=== PATIENT | male | born 1995 | race Caucasian/White ===

== ENCOUNTER 2021-07-31 23:08 | Inpatient (IN) | payer OTHER ==
--- NOTE | 2021-07-31 23:51 | ED ---
Psych HPI - General Chief Complaint: Psychiatric Symptoms Stated Complaint: Mental Health Time Seen by Provider: 07/31/21 23:41 Source: patient, police, RN notes reviewed Mode of arrival: ambulatory - History of Present Illness Initial Comments: This is a pleasant 26-year-old male who presents to emergency department complaining of suicidal thoughts. Patient states for quite some time he has been having suicidal thoughts. Patient states that he inadvertently locked his keys in his car tonight after trying to clean it off. Patient states she shares a car with his brother. Patient became upset after this and has started having increased suicidal thoughts. Patient states he sometimes contemplates jumping off an overpass. He denies any homicidal ideation. Polydrug abuse. No other health problems. Patient has no thoughts of homicidality. Occasional cigarette smoker. Patient does have a job and states he is unable to make it to his job regularly. Patient states that he has brother have a fairly good relationship. He states that his brother is really the only family has left after his parents have passed on. MD Complaint: suicidal ideation - Related Data Previous Rx's Medication Instructions Recorded Doxycycline [Vibramycin] 100 mg PO Q12HR 10 Days capsule 04/23/17 Allergies Allergy/AdvReac Type Severity Reaction Status Date / Time No Known Allergies Allergy Verified 07/31/21 23:15 Review of Systems ROS Statement: Those systems with pertinent positive or pertinent negative responses have been documented in the HPI. ROS Other: All systems not noted in ROS Statement are negative. Past Medical History Past Medical History: No Reported History History of Any Multi-Drug Resistant Organisms: None Reported Past Surgical History: No Surgical Hx Reported Past Psychological History: No Psychological Hx Reported Smoking Status: Never smoker Past Alcohol Use History: None Reported Past Drug Use History: None Reported General Exam - General Exam Comments Initial Comments: Patient does not appear to be ill or toxic. Vital signs reviewed Limitations: no limitations General appearance: alert, in no apparent distress Head exam: Present: atraumatic, normocephalic, normal inspection Eye exam: Present: normal appearance, PERRL, EOMI. Absent: scleral icterus, conjunctival injection, periorbital swelling ENT exam: Present: normal exam, mucous membranes moist Neck exam: Present: normal inspection. Absent: tenderness, meningismus, lymphadenopathy Respiratory exam: Present: normal lung sounds bilaterally. Absent: respiratory distress, wheezes, rales, rhonchi, stridor Cardiovascular Exam: Present: regular rate, normal rhythm, normal heart sounds. Absent: systolic murmur, diastolic murmur, rubs, gallop, clicks GI/Abdominal exam: Present: soft, normal bowel sounds. Absent: distended, tenderness, guarding, rebound, rigid Extremities exam: Present: normal inspection, full ROM, normal capillary refill. Absent: tenderness, pedal edema, joint swelling, calf tenderness Back exam: Present: normal inspection Neurological exam: Present: alert, oriented X3, CN II-XII intact Psychiatric exam: Present: normal affect, depressed, anxious Skin exam: Present: warm, dry, intact, normal color. Absent: rash Course Vital Signs 07/31/21 08/01/21 23:15 02:22 Temperature 98 F Pulse Rate 111 H 98 Respiratory 20 16 Rate Blood Pressure 130/70 128/78 O2 Sat by Pulse 98 98 Oximetry Medical Decision Making - Medical Decision Making Patient with suicidal thoughts and ideations. Cleared medically for EPS evaluation The case was discussed in detail with ED attending physician. Presentation, findings, treatment plan discussed in detail. Patient was also seen and assessed by the ED attending physician. Patient will be admitted for psychiatric evaluation. - Lab Data Lab Results 07/31/21 Range/Units 23:44 Urine Opiates Screen Not Detected (NotDetected) Ur Oxycodone Screen Not Detected (NotDetected) Urine Methadone Screen Not Detected (NotDetected) Ur Propoxyphene Screen Not Detected (NotDetected) Ur Barbiturates Screen Not Detected (NotDetected) U Tricyclic Antidepress Not Detected (NotDetected) Ur Phencyclidine Scrn Not Detected (NotDetected) Ur Amphetamines Screen Not Detected (NotDetected) U Methamphetamines Scrn Not Detected (NotDetected) U Benzodiazepines Scrn Not Detected (NotDetected) Urine Cocaine Screen Not Detected (NotDetected) U Marijuana (THC) Screen Not Detected (NotDetected) Disposition Clinical Impression: Depression, Suicidal ideation Disposition: ADMITTED IP TO THIS [facility] Decision to Admit Reason: Admit from EC Decision Time: 01:02
[2021-08-01 00:26] LABS: Amphetamine Screen,Urine Not Detected (NotDetected); Barbiturate Screen,Urine Not Detected (NotDetected); Benzodiazepines Screen,Urine Not Detected (NotDetected); Cocaine Screen,Urine Not Detected (NotDetected); Methadone Screen, Urine Not Detected (NotDetected); Opiate Screen,Urine Not Detected (NotDetected); Oxycodone Screen, Urine Not Detected (NotDetected); Phencyclidine Screen,Urine Not Detected (NotDetected); Tricyclic Antidepressant,Urine Not Detected (NotDetected); Urn Cannabinoid Scrn Not Detected (NotDetected)
[2021-08-01] MEDS ORDERED: MAGNESIUM HYDROXIDE 2,400 MG/10 ML CUP PO PRN (01:17)
[2021-08-01] MEDS ORDERED: MAG HYDROX/AL HYDROX/SIMETH 30 ML CUP PO PRN (01:17)
[2021-08-01] MEDS ORDERED: ACETAMINOPHEN TAB 325 MG TAB PO PRN (01:17)
[2021-08-01] MEDS ORDERED: HALOPERIDOL LACTATE 5 MG/ML 1 ML VIAL IM PRN (01:17)
[2021-08-01] MEDS ORDERED: haloperidoL 5 MG TAB PO PRN (01:21)
[2021-08-01] MEDS ORDERED: LORazepam 2 MG/ML INJ IM PRN (01:21)
[2021-08-01] MEDS ORDERED: LORazepam 1 MG TAB PO PRN (01:25)
[2021-08-01] MEDS ORDERED: NICOTINE 14MG/24HR PATCH TRANSDERM SCH (09:00)
--- NOTE | 2021-08-01 13:04 | P.HP ---
Psychiatric H&P - . H&P Date: 08/01/21 History & Physical: Allergies Allergy/AdvReac Type Severity Reaction Status Date / Time No Known Allergies Allergy Verified 07/31/21 23:15 Vital Signs Temp 98.3 F 08/01/21 09:42 Pulse 110 H 08/01/21 09:42 Resp 16 08/01/21 09:42 BP 133/71 08/01/21 09:42 Pulse Ox 98 08/01/21 09:42 Intake & Output 07/31/21 08/01/21 08/01/21 18:59 06:59 18:59 Weight 97.8 kg Laboratory Last Values Urine Opiates Screen Not Detected (NotDetected) 07/31/21 23:44 Ur Oxycodone Screen Not Detected (NotDetected) 07/31/21 23:44 Urine Methadone Screen Not Detected (NotDetected) 07/31/21 23:44 Ur Propoxyphene Screen Not Detected (NotDetected) 07/31/21 23:44 Ur Barbiturates Screen Not Detected (NotDetected) 07/31/21 23:44 U Tricyclic Antidepress Not Detected (NotDetected) 07/31/21 23:44 Ur Phencyclidine Scrn Not Detected (NotDetected) 07/31/21 23:44 Ur Amphetamines Screen Not Detected (NotDetected) 07/31/21 23:44 U Methamphetamines Scrn Not Detected (NotDetected) 07/31/21 23:44 U Benzodiazepines Scrn Not Detected (NotDetected) 07/31/21 23:44 Urine Cocaine Screen Not Detected (NotDetected) 07/31/21 23:44 U Marijuana (THC) Screen Not Detected (NotDetected) 07/31/21 23:44 Coronavirus (PCR) Not Detected (Not Detectd) 08/01/21 01:07 08/01/21 12:59 IDENTIFYING DATA: Patient is a 26-year-old male who currently lives with his brother in a house has no kids and is unmarried. HPI: Patient presented to the hospital yesterday and was petition by the police. According to petition patient claimed that he was having suicidal thoughts and wanted to jump off of the overpass and into the water. Patient was admitted involuntarily however ended up signing adult voluntary form in agreement to treatment on the unit. He was fairly calm and cooperative during interview. He answered questions appropriately. He appeared to be fairly constricted and had poor eye contact during conversation. He states that he's been feeling depressed lately for the past year or so. He complains that he does have high levels of anxiety throughout the day. He claims that yesterday he was shoveling snow during the snowstorm and claims that he was cleaning his brother's car but accidentally left the keys inside the car. He states that he didn't want to t ell his brother and "decided to kill myself". He states that he had been thinking about suicide on and off however this had triggered it. He claims that he started walking towards the overpass and then called the 911 and the police came to take him to the hospital. He states that he feels that he is "stuck in her routine" and feels that it is hard for him to break it. 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 He states that he has been feeling suicidal for the past 1-2 months every other day. He claims that even if he is in a good mood he still may feel suicidal. He states that he has poor sleep and fair appetite. He states that his parents in 2012 which was very hard for him. Patient denies any current suicidal or homicidal ideations intent or plan. At this time patient denies any auditory or visual hallucinations. Patient denies any flight of ideas racing thoughts and increased in goal directed behavior. Patient admits to using now recreational drugs or cigarettes. UDS is negative. PAST PSYCHIATRIC HISTORY: Patient states that he has no previous psychiatric history. Patient denies being on any psychiatric medications. Patient denies any previous psychiatric hospitalizations. Patient denies any psychiatric outpatient follow-up. Claims he used to see a counselor in 2013 after his parents however stopped going. Patient denies any history of suicide attempts in the past. PMH:denies ALLERGIES: as per EMR CHEMICAL DEPENDENCY HISTORY: as per HPI FAMILY PSYCHIATRIC/SUBSTANCE USE HISTORY: He states that both of his parents were depressed SOCIAL HISTORY: Patient was born and raised in part here in [place]. 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 He currently lives with his brother in a house. He states that he has no kids and is unmarried. He completed up to ninth grade in school. He has no legal history. MENTAL STATUS EXAM: General Appearance: Patient appears to be wearing glasses, longer hair, stated age is alert, directable, and attempts to cooperate. Patient appears to have poor hygiene and grooming. Behavior: Patient is seated without any agitated behavior. poor eye contact. Speech: Patient's speech is fluent and nonpressured. Soft tone Mood/Affect: Patient reports their mood is depressed and anxious, affect is congruent and constricted. Suicidality/Homicidality: Patient denies having any homicidal ideation intent or plan. Denies any suicidal ideations intent or plan Perceptions: Patient denies any visual hallucinations and denies any auditory hallucinations Though content/process: There is no evidence of any delusional thought content and thought process is linear and goal-directed. Memory and concentration: AOX3, grossly intact for the purposes of this session. Can spell "WORLD" backwards Judgment and insight: poor STRENGTHS/WEAKNESSES: strength is that patient is resilient. Weakness is that patient has poor judgment and is impulsive INTELLECT: average IMPRESSIONS: Major depressive disorder, recurrent, severe without psychotic features Generalized anxiety disorder PLAN: -Patient is admitted under voluntary status to [facility]HU for stabilization of psychiatric symptoms and safety. Patient has signed adult voluntary form and medication consent and is placed in patient's chart. -Medications : Will start patient on Zoloft 25 mg daily for mood/anxiety, trazodone 25 mg daily at bedtime for insomnia/mood. -Ativan and Haldol PRN for agitation/aggression -Patient was informed of the risks, benefits and side effects of the medication and patient verbally consented to taking the medications. Patient signed med consent form and was placed in chart. -Internal Medicine consult to perform medical evaluation and physical. -NRT - not needed as patient does not smoke -SW on board for discharge planning. Encourage patient to participate in groups to work on coping skills.
[2021-08-01] MEDS: SERTRALINE 25 MG TAB PO SCH (13:10)
[2021-08-01] MEDS: traZODone HCL 50 MG TAB PO SCH (22:28)
--- NOTE | 2021-08-01 23:26 | P.CONS ---
History of Present Illness - Reason for Consult Consult date: 08/01/21 - History of Present Illness The patient is a 26-year-old male with known PMH who presented to the emergency room with complaints of depression and suicidal ideation. The patient was admitted to the mental health unit where he was seen and evaluated. The patient reports that he has been struggling with his social life which led him to contemplate jumping from an overpass. He however called EMS and was subsequently brought into the hospital. He reports no chronic medical conditions and does not take any medications. He denied tobacco, marijuana, or illicit substance use. He further denied any active complaints. Denied shortness of breath, fever, chills, cough, nausea, vomiting, abdominal pain, diarrhea. Review of systems: Pertinent positives and negatives as discussed in HPI, a complete review of systems was performed and all other systems are negative. Physical examination: General: non toxic, no distress, appears at stated age, overweight Derm: no unusual rashes/lesions no unusual ecchymoses, warm, dry Head: atraumatic, normocephalic, symmetric Eyes: EOMI, no lid lag, anicteric sclera, pupils equal round reactive to light ENT: Nose and ears atraumatic, no thrush, no pharyngeal erythema Neck: No thyromegaly, no cervical lymphadenopathy, trachea midline, supple Mouth: no lip lesion, mucus membranes moist Cardiovascular: S1S2 reg, no murmur, positive posterior tibial pulse bilateral, no edema, capillary refill less than 2 seconds Lungs: CTA bilateral, no rhonchi, no rales , no accessory muscle use Abdominal: soft, nontender to palpation, no guarding, no appreciable organomegaly, normal bowel sounds Ext: no gross muscle atrophy, muscle strength 5 out of 5 in all 4 extremities grossly, no contractures, Neuro: CN II-XI grossly intact, light touch intact all 4 extremities, finger to nose within normal limits, Psych: Alert, oriented, appropriate affect Assessment/plan Depression and suicidal ideation -As per psychiatry Thank you for allowing us to participate in the care of this patient. We will follow peripherally. Do not hesitate to contact us with questions. Someone can be reached from the [facility] hospitalist group at all hours of the day at [phone]. Past Medical History Past Medical History: No Reported History History of Any Multi-Drug Resistant Organisms: None Reported Past Surgical History: No Surgical Hx Reported Past Psychological History: No Psychological Hx Reported Smoking Status: Never smoker Past Alcohol Use History: None Reported Past Drug Use History: None Reported Medications and Allergies Home Medications Medication Instructions Recorded Confirmed Type Doxycycline [Vibramycin] 100 mg PO Q12HR 10 Days capsule 04/23/17 Rx Allergies Allergy/AdvReac Type Severity Reaction Status Date / Time No Known Allergies Allergy Verified 07/31/21 23:15 Physical Exam Vitals: Vital Signs Temp Pulse Pulse Pulse Resp BP BP 08/01/21 09:42 98.3 F 110 H 16 133/71 08/01/21 08:00 98.3 F 08/01/21 02:51 98.2 F 87 18 140/72 08/01/21 02:22 98 16 128/78 Pulse Ox 08/01/21 09:42 98 08/01/21 08:00 08/01/21 02:51 97 08/01/21 02:22 98
[2021-08-02] MEDS: SERTRALINE 25 MG TAB PO SCH (08:04)
[2021-08-02 10:24] LABS: Basophils % (A) 1 %; Eosinophils # (A) 0.1 k/uL (0-0.7); Eosinophils % (A) 1 %; HCT 46.9 % (39.0-53.0); HGB 16.2 gm/dL (13.0-17.5); Lymphocytes # (A) 1.5 k/uL (1.0-4.8); Lymphocytes % (A) 22 %; MCH 31.9 pg (25.0-35.0); MCHC 34.5 g/dL (31.0-37.0); MCV 92.4 fL (80.0-100.0); Mean Platelet Volume 7.9; Monocytes # (A) 0.4 k/uL (0-1.0); Monocytes % (A) 6 %; Neutrophils # (A) 4.5 k/uL (1.3-7.7); Neutrophils % (A) 68 %; Platelet Count 285 k/uL (150-450); RBC 5.08 m/uL (4.30-5.90); RDW 13.6 % (11.5-15.5); WBC 6.7 k/uL (3.8-10.6)
[2021-08-02 10:42] LABS: ALT 30 U/L (4-49); AST 27 U/L (17-59); African American GFR (CKD) >90 (>60 ml/min/1.73 sqM); Albumin 4.5 g/dL (3.5-5.0); Alkaline Phosphatase 120 U/L (38-126); Anion Gap 10 mmol/L; Blood Urea Nitrogen 18 mg/dL (9-20); Calcium 10.2 mg/dL (8.4-10.2); Carbon Dioxide 26 mmol/L (22-30); Chloride 104 mmol/L (98-107); Glucose 99 mg/dL (74-99); Non-African American GFR(CKD) >90 (>60 ml/min/1.73 sqM); Potassium 4.6 mmol/L (3.5-5.1); Sodium 140 mmol/L (137-145); Total Bilirubin 1.1 mg/dL (0.2-1.3)
--- NOTE | 2021-08-02 12:14 | P.PN ---
Progress Note - Text Progress Note Date: 08/02/21 Interval History: Patient was seen wandering the hallways and was directable and agreeable to catrachita jimenez with marine underwriter in the office. Patient appeared to have a mild improvement in his affect today. He claims that he is doing a bit better in terms of his mood and anxiety. He states that he does feel anxious while being on the unit. He claims that he has been trying to go to some groups however was fairly vague about what he was learning. He states that he was able to sleep throughout the night which was good for him. He asked more medication questions and about his treatment which were answered. He seemed to have an improvement in his insight and judgment. He claims that he spoke with his brother over the phone who may come and visit him over the weekend. He has an improving appetite. At this time patient denies any suicidal or homical ideations, intent or plan. Patient denies any auditory, visual hallucinations and denies any paranoia or delusions. Patient denies any side effects from the medications and has been compliant with meds. Mental Status Exam: General Appearance: Patient appears to be wearing glasses, longer hair, stated age is alert, directable, and attempts to cooperate. Patient appears to have improving hygiene and grooming. Behavior: Patient is seated without any agitated behavior. Improving eye contact. Speech: Patient's speech is fluent and nonpressured. Soft tone Mood/Affect: Patient reports their mood is depressed and anxious, improving, affect is congruent Suicidality/Homicidality: Patient denies having any homicidal ideation intent or plan. Denies any suicidal ideations intent or plan Perceptions: Patient denies any visual hallucinations and denies any auditory hallucinations Though content/process: There is no evidence of any delusional thought content and thought process is linear and goal-directed. Memory and concentration: AOX3, grossly intact for the purposes of this session. Can spell "WORLD" backwards Judgment and insight: poor, improving mildly. IMPRESSIONS: Major depressive disorder, recurrent, severe without psychotic features Generalized anxiety disorder Plan: -Patient continues to meet criteria for inpatient psychiatric admission for symptom stabilization and safety. Patient has signed adult voluntary form and medication consent and was placed in patient's chart. -Medications: Will increase Zoloft to 50 mg for anxiety/mood starting tomorrow. Continue with trazodone 25 mg daily at bedtime for mood/insomnia. These can be titrated up as needed/tolerated during the weekend. -When necessary Ativan and Haldol for agitation/aggression. -NRT - not needed as patient does not smoke -SW on board for discharge planning. Encouraged the patient to participate in milieu. Likely discharge Thursday if patient is improving over the weekend.
[2021-08-02 16:23] LABS: LDL Cholesterol,Calculated 103.4 mg/dL (0.0-131.0); VLDL Calculation 19.44 mg/dL (5.00-40.00)
[2021-08-02] MEDS: traZODone HCL 50 MG TAB PO SCH (21:53)
[2021-08-03] MEDS: SERTRALINE 50 MG TAB PO SCH (07:55)
--- NOTE | 2021-08-03 13:27 | P.PN ---
Progress Note - Text Progress Note Date: 08/03/21 CHIEF COMPLAINT The patient developed suicidal thinking related to a stress issue. He has had long-term problems with anxiety. INTERVAL HISTORY Patient is doing fair. He had a quiet day yesterday. He comes out on the unit. He has been attending groups. He says that groups have been helpful for him. He slept fairly well last night. Today he's been up. Overall he is doing about the same. He says he has a better outlook. It is noteworthy that in his history he has had long-term problems with anxiety. 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 He notes that some of his current stress related to the fact that he had been working 7 days a week. He says he likes his work and is comfortable in the work environment but acknowledged that he may have felt it was too much. He notes significant trauma issues in his growing up and that his mother from complications of muscular dystrophy when he was 17 and that 8 months after that his father from pneumonia. His sister who is 4 years older became the head of the family. He said it was a very stressful situation for him living with his sister who basically had him watch her children for the 4 years or more that he lived with her. He said that lately he has not had any contact with his sister for the last 4 years. Currently he lives with his brother. He says that is a stable living situation. His brothers one year older. He tolerates his psychotropic medications. MENTAL STATUS EXAM Patient sat with some restlessness. He gave fair eye contact. He didn't say a lot. His thoughts were clear and coherent. He had an anxious affect. His mood was reserved though not clearly depressed. He seems somewhat distressed. There was no indication of thought disorder. He was reporting that he was not having suicidal thoughts. Cognition was clear. ASSESSMENT I will continue the current diagnosis and treatment plan. We will continue to engage the patient in individual and group therapeutic activities. I will continue the patient's Zoloft 50 mg a day. There might be consideration for titrated up to 100 mg a day. It is noteworthy that the patient has had long-term issues with anxiety and is likely to require fairly assertive doses of antidepressants. He does not have any outpatient follow-up which will be something that needs to be addressed as part of discharge planning. We will focus on stabilization and discharge planning.
[2021-08-03] MEDS: traZODone HCL 50 MG TAB PO SCH (20:41)
[2021-08-04 08:04] VITALS: RESP 16
[2021-08-04] MEDS: SERTRALINE 50 MG TAB PO SCH (08:04)
--- NOTE | 2021-08-04 13:13 | P.PN ---
Progress Note - Text Progress Note Date: 08/04/21 CHIEF COMPLAINT The patient developed suicidal thinking related to a stress issue. He has had l edilia-term problems with anxiety. INTERVAL HISTORY The patient has been doing fairly well. He had a quiet day yesterday. He comes out of the unit. He has been attending groups. He has said that he slept fairly well last night. When I talked to him today he notes that his mood and outlook are better. He acknowledges that he tends to "think the worst" and any number of stressful situations. When I reviewed issues that led to him coming into the hospital he said that there were a number of different things that had been stressing him, though there was nothing specific that set things over the edge. I asked him about the idea that he did not seem to show much insight about what things have troubled him and lead him to the point of becoming suicidal simply because he liked keys in the car. He stated that today he is not feeling as anxious in part because he has been more open than is typical for him. He said the groups have been helpful for him to express more about himself and things that he deals with. He said that he has felt support from staff and the activities and that he sees benefit of getting out follow-up therapy when he is out of the hospital. He tolerates his psychotropic medications. MENTAL STATUS EXAM The patient sat with some restlessness. He gave good eye contact. He answered questions appropriately. His thoughts were clear, coherent and goal directed. His affect was somewhat anxious though he did seem a little more relaxed compared to how he presented yesterday. He had a quiet mood though didn't appear to be significantly depressed or distressed. There was no indication of thought disorder. He made no indication of thoughts of harm. He was oriented and alert. ASSESSMENT I will continue the current diagnosis and treatment plan. We will c ontinue to engage the patient in individual and group therapeutic activities. I will increase Zoloft to 100 mg a day. As noted he has had long-term issues with anxiety and poor self-esteem. He does not have any outpatient follow-up which will need to be addressed as part of discharge planning with the referral for individual psychotherapy. We will focus on stabilization and discharge planning.
[2021-08-04] MEDS ORDERED: SERTRALINE 50 MG TAB PO ONE (14:00)
[2021-08-04] MEDS: traZODone HCL 50 MG TAB PO SCH (21:41)
[2021-08-05] MEDS: SERTRALINE 100 MG TAB PO SCH (07:51)
--- NOTE | 2021-08-05 15:10 | P.PN ---
Progress Note - Text Progress Note Date: 08/05/21 CHIEF COMPLAINT The patient developed suicidal thinking related to a stress issue. He has had l edilia-term problems with anxiety. INTERVAL HISTORY The patient has been doing fairly well in general he had a quiet day yesterday he comes out on the unit he has been attending groups. He acknowledges that he has actually been able to express some thoughts about the things he has struggled with which is been a huge step forward for him. He slept well last night. I had a telephone contact with the person who owned the patient identifies as his primary support person, Linda Zamora She indicated that she first met the patient when he was 17 at his father's . She believes he has struggled with chronic grief since then. She notes that back then he was extremely shy to the point where he wouldn't even give people eye contact. He would be overwhelmed with anxiety if she were to ask him to go into a store to pickers material handlers an item. She confirmed that he has struggled significantly living with his older sister. She noted that anytime he gets under stress one of his reactions is to take a long walk, which is not always been productive for him including relating to his recent events that brought him into the hospital. She was shocked about the idea that he would react to such a degree just for a locking keys in his brother's car. She notes he does well at work and seems to have friends at work although noted that he was socializing with some coworkers after work. She said this went on for a while and then only he seemed to adjust push people away and got back to isolating himself area and she notes that she believes he is afraid of getting close to anyone. When I reviewed all of this information with the patient he was in agreement that it is a fairly accurate description of some of the things he has struggled with. He is willing to get involved in individual therapy. He recognizes that he may have impulsive behavior that could be destructive when it's driven by the high anxiety he can get into. He does believe that being on the unit has been helpful to him he to lerates his psychotropic medications. MENTAL STATUS EXAM The patient sat with some restlessness. He gave good eye contact. He answered questions appropriately. His thoughts were clear, coherent and goal directed. His affect was somewhat anxious though he continues to show more relaxed manner and demeanor. He smiled a little during the interview. He had a quiet mood though didn't appear to be significantly depressed or distressed. There was no indication of thought disorder. He made no indication of thoughts of harm. He was oriented and alert. ASSESSMENT I will continue the current diagnosis and treatment plan. We will continue to engage the patient in individual and group therapeutic activities. His Zoloft is increased to 100 mg a day as of this morning. As noted he has had long-term issues with anxiety and poor self-esteem. I reviewed via process relating to treatment with antidepressants including the possibility of titrated up to higher doses if indicated. We talked about the time course for a response and improvement related to depression. We talked about concerns for potential depression. I encouraged the patient if he does show a good response to Zoloft to anticipate continuing Zoloft for at least one year. He does not have any outpatient follow-up which will need to be addressed as part of discharge planning with the referral for individual psychotherapy. I anticipate discharge patient tomorrow. We will focus on stabilization and discharge planning.
[2021-08-05] MEDS: traZODone HCL 50 MG TAB PO SCH (21:04)
[2021-08-06 06:54] VITALS: BP 131/76; PULSE 84; TEMP 98.2
[2021-08-06] MEDS: SERTRALINE 100 MG TAB PO SCH (08:39)
--- NOTE | 2021-08-06 10:18 | P.DS ---
Providers Date of admission: 08/01/21 01:02 Expected date of discharge: 08/06/21 Attending physician: Jarrett Suero MD Consults: 08/01/21 01:17 Consult Physician Routine Consulting Provider: Rachel Peters Consult Reason/Comments: h and p Do you want consulting provider notified?: Already Contacted Primary care physician: Wander Ott Kut - Discharge Diagnosis(es) (1) Major depressive disorder, recurrent severe without psychotic features Current Visit: Yes Status: Acute Priority: High (2) Generalized anxiety disorder Current Visit: Yes Status: Acute Priority: Medium Hospital Course: Admission HPI: Admission note was completed by data analyst report writer "Patient is a 26-year-old male who currently lives with his brother in a house has no kids and is unmarried. Patient presented to the hospital yesterday and was petition by the police. According to petition patient claimed that he was having suicidal thoughts and wanted to jump off of the overpass and into the water. Patient was admitted involuntarily however ended up signing adult voluntary form in agreement to treatment on the unit. He was fairly calm and cooperative during interview. He answered questions appropriately. He appeared to be fairly constricted and had poor eye contact during conversation. He states that he's been feeling depressed lately for the past year or so. He complains that he does have high levels of anxiety throughout the day. He claims that yesterday he was shoveling snow during the snowstorm and claims that he was cleaning his brother's car but accidentally left the keys inside the car. He states that he didn't want to tell his brother and "decided to kill myself". He states that he had been thinking about suicide on and off however this had triggered it. He claims that he started walking towards the overpass and then called the 911 and the police came to take him to the hospital. He states that he feels that he is "stuck in her routine" and feels that it is hard for him to break it. 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 He states that he has been feeling suicidal for the past 1-2 months every other day. He claims that even if he is in a good mood he still may feel suicidal. He states that he has poor sleep and fair appetite. He states that his parents in 2012 which was very hard for him. Patient denies any current suicidal or homicidal ideations intent or plan. At this time patient denies any auditory or visual hallucinations. Patient denies any flight of ideas racing thoughts and increased in goal directed behavior. Patient admits to using now recreational drugs or cigarettes. UDS is negative." Hospital course: Upon admission to the unit patient was directable and agreeable to commence treatment and signed adult voluntary form. Patient got along well with other patients on the unit and followed unit protocol. Patient was compliant with the medications and denied any side effects throughout hospital course. Patient was started on Zoloft and titrated up to a dose of 100 mg daily for mood/anxiety. Patient was also started on trazodone 25 mg daily at bedtime for mood/insomnia. Patient spoke of his stressors and engaged in therapy both group and individual. Patient was also seen by medical team for history and physical exam. Throu ghout the course of the hospitalization patient gradually improved with regards to mood, anxiety, sleep and became more future oriented with improved insight and judgment. On the day of discharge patient denied any suicidal or homicidal ideations intent or plan denied any auditory or visual hallucinations. Patient endorsed wanting to live for his health and future. The patient denied any access to guns or weapons. Patient denied any paranoia and did not endorse any delusions. Patient does not have a significant history of substance abuse however was counseled on abstaining from all substances including alcohol and marijuana. Patient was also counseled on the medications and need for regular compliance and was encouraged to follow-up with their outpatient appointment for mental health and also for primary care. Prior to discharge a family meeting will be arranged by social media assistant to answer any questions and ensure safety upon discharge. Mental status exam: General Appearance: Patient appears to be stated age is alert, pleasant, and cooperative. Patient is in no acute distress and has improved hygiene and grooming Behavior: Patient is calmly seated without any agitated behavior. Speech: Patient's speech is fluent and nonpressured. Mood/Affect: Patient reports their mood is "good", affect is congruent and euthymic. Suicidality/Homicidality: Patient denies having any suicidal or homicidal ideation intent or plan. Perceptions: Patient denies any auditory or visual hallucinations. Though content/process: There is no evidence of any delusional thought content and thought process is linear and goal-directed. more future oriented Memory and concentration: AOX3, grossly intact for the purposes of this session. Can spell "WORLD" backwards correctly. Judgment and insight: improved with guarded prognosis Impression: Major depressive disorder, recurrent, severe without psychotic features Generalized anxiety disorder Plan: -Continue with discharge today as patient has improved and stabilized psychiatrically and is not currently an imminent threat to himself and/or others. -Continue medications: Zoloft 100 mg daily for mood/anxiety, trazodone 25 mg daily at bedtime for insomnia/mood -Patient was counseled on the need for medication compliance and appropriate follow-up at mental health and also primary care for medical issues. Patient verbalized understanding and agreed. -Social work to arrange for and conduct family meeting to ensure safety upon discharge and answer any questions/concerns. Social work also to arrange for patients follow up appointments for psychiatric care along with follow up with primary care provider. -Patient counseled on abstaining from recreational drugs and marijuana and alcohol. Was informed/educated on the adverse effects on their physical and mental health. Patient verbally agreed and understood. -Patient was instructed to return to the hospital or seek immediate medical care if their psychiatric or medical symptoms do worsen or reoccur. Allergies Allergy/AdvReac Type Severity Reaction Status Date / Time No Known Allergies Allergy Verified 07/31/21 23:15 Laboratory Results WBC 6.7 k/uL (3.8-10.6) 08/02/21 10:07 RBC 5.08 m/uL (4.30-5.90) 08/02/21 10:07 Hgb 16.2 gm/dL (13.0-17.5) 08/02/21 10:07 Hct 46.9 % (39.0-53.0) 08/02/21 10:07 MCV 92.4 fL (80.0-100.0) 08/02/21 10:07 MCH 31.9 pg (25.0-35.0) 08/02/21 10:07 MCHC 34.5 g/dL (31.0-37.0) 08/02/21 10:07 RDW 13.6 % (11.5-15.5) 08/02/21 10:07 Plt Count 285 k/uL (150-450) 08/02/21 10:07 MPV 7.9 08/02/21 10:07 Neutrophils % 68 % 08/02/21 10:07 Lymphocytes % 22 % 08/02/21 10:07 Monocytes % 6 % 08/02/21 10:07 Eosinophils % 1 % 08/02/21 10:07 Basophils % 1 % 08/02/21 10:07 Neutrophils # 4.5 k/uL (1.3-7.7) 08/02/21 10:07 Lymphocytes # 1.5 k/uL (1.0-4.8) 08/02/21 10:07 Monocytes # 0.4 k/uL (0-1.0) 08/02/21 10:07 Eosinophils # 0.1 k/uL (0-0.7) 08/02/21 10:07 Basophils # 0.0 k/uL (0-0.2) 08/02/21 10:07 Sodium 140 mmol/L (137-145) 08/02/21 10:07 Potassium 4.6 mmol/L (3.5-5.1) 08/02/21 10:07 Chloride 104 mmol/L (98-107) 08/02/21 10:07 Carbon Dioxide 26 mmol/L (22-30) 08/02/21 10:07 Anion Gap 10 mmol/L 08/02/21 10:07 BUN 18 mg/dL (9-20) 08/02/21 10:07 Creatinine 0.87 mg/dL (0.66-1.25) 08/02/21 10:07 Est GFR (CKD-EPI)AfAm >90 (>60 ml/min/1.73 sqM) 08/02/21 10:07 Est GFR (CKD-EPI)NonAf >90 (>60 ml/min/1.73 sqM) 08/02/21 10:07 Glucose 99 mg/dL (74-99) 08/02/21 10:[address] Glu mg/dL 113 08/02/21 10:07 Hemoglobin A1c 5.6 % (0.0-6.0) 08/02/21 10:07 Calcium 10.2 mg/dL (8.4-10.2) 08/02/21 10:07 Total Bilirubin 1.1 mg/dL (0.2-1.3) 08/02/21 10:07 AST 27 U/L (17-59) 08/02/21 10:07 ALT 30 U/L (4-49) 08/02/21 10:07 Alkaline Phosphatase 120 U/L (38-126) 08/02/21 10:07 Total Protein 8.0 g/dL (6.3-8.2) 08/02/21 10:07 Albumin 4.5 g/dL (3.5-5.0) 08/02/21 10:07 Triglycerides 97.20 mg/dL (0.00-149.00) 08/02/21 10:07 Cholesterol 160.00 mg/dL (0.00-200.00) 08/02/21 10:07 LDL Cholesterol, Calc 103.4 mg/dL (0.0-131.0) 08/02/21 10:07 VLDL Cholesterol, Calc 19.44 mg/dL (5.00-40.00) 08/02/21 10:07 HDL Cholesterol 37.20 mg/dL (40.00-60.00) L 08/02/21 10:07 Cholesterol/HDL Ratio 4.30 Ratio 08/02/21 10:07 TSH 0.326 mIU/L (0.465-4.680) L 08/02/21 10:07 Free T4 1.240 ng/dL (0.800-1.800) 08/02/21 10:07 Urine Opiates Screen Not Detected (NotDetected) 07/31/21 23:44 Ur Oxycodone Screen Not Detected (NotDetected) 07/31/21 23:44 Urine Methadone Screen Not Detected (NotDetected) 07/31/21 23:44 Ur Propoxyphene Screen Not Detected (NotDetected) 07/31/21 23:44 Ur Barbiturates Screen Not Detected (NotDetected) 07/31/21 23:44 U Tricyclic Antidepress Not Detected (NotDetected) 07/31/21 23:44 Ur Phencyclidine Scrn Not Detected (NotDetected) 07/31/21 23:44 Ur Amphetamines Screen Not Detected (NotDetected) 07/31/21 23:44 U Methamphetamines Scrn Not Detected (NotDetected) 07/31/21 23:44 U Benzodiazepines Scrn Not Detected (NotDetected) 07/31/21 23:44 Urine Cocaine Screen Not Detected (NotDetected) 07/31/21 23:44 U Marijuana (THC) Screen Not Detected (NotDetected) 07/31/21 23:44 Coronavirus (PCR) Not Detected (Not Detectd) 08/01/21 01:07 Vital Signs Temp 98.2 F 08/06/21 06:51 Pulse 84 08/06/21 06:51 Resp 16 08/04/21 08:03 BP 131/76 08/06/21 06:51 Pulse Ox 98 08/04/21 08:03 Patient Condition at Discharge: Stable Plan - Discharge Summary Discharge Rx Participant: No New Discharge Prescriptions: New Sertraline [Zoloft] 100 mg PO DAILY 30 Days tab traZODone HCL [Desyrel] 25 mg PO HS 30 Days tab Discontinued Doxycycline [Vibramycin] 100 mg PO Q12HR 10 Days capsule Discharge Medication List Sertraline [Zoloft] 100 mg PO DAILY 30 Days tab 08/06/21 [Rx] traZODone HCL [Desyrel] 25 mg PO HS 30 Days tab 08/06/21 [Rx] Follow up Appointment(s)/Referral(s): [facility] [Outside] - 08/09/21 2:30 pm (Al[facility] Pearson) Wander Meyers MD [Primary Care Provider] - 1-2 days Patient Instructions/Handouts: Depression (DC) Activity/Diet/Wound Care/Special Instructions: Activity and diet as tolerated. Avoid the use of street drugs and alcohol. Take all medications as prescribed. When you are in need of refills on your medications please contact your medical provider and/or outpatient psychiatrist to have this done. Please go to scheduled outpatient appointment for aftercare treatment. If symptoms return or become worse, call the crisis line at and/or go to the nearest emergency room for evaluation Discharge Disposition: HOME SELF-CARE
== END 2021-08-06 12:40 | disposition home or self-care (01) | DRG 885 ==
LOC: EC 23:08 → 3MHU 08-01 01:02
PROVIDERS: ADMIT Psychiatry & Neurology Psychiatry; ATTEND Psychiatry & Neurology Psychiatry
DX: F33.2 Major depressive disorder, recurrent severe without psychotic features (principal); R45.851 Suicidal ideations; Z20.822 Contact with and (suspected) exposure to COVID-19; F41.1 Generalized anxiety disorder; G47.00 Insomnia, unspecified; F17.210 Nicotine dependence, cigarettes, uncomplicated; Z71.41 Alcohol abuse counseling and surveillance of alcoholic; Z71.51 Drug abuse counseling and surveillance of drug abuser
CPT/HCPCS: 80053; 80061; 80306; 82075; 83036; 84439; 84443; 85025; 87635; 99285

== ENCOUNTER 2022-07-09 11:34 | Emergency (ER) | payer OTHER ==
[2022-07-09] MEDS ORDERED: SODIUM CHLORIDE 0.9% 1,000 ML IV ONE (13:53)
[2022-07-09] MEDS ORDERED: KETOROLAC 15 MG/ML 1 ML VIAL IVP STA (13:53)
--- NOTE | 2022-07-09 13:54 | ED ---
Abdominal Pain HPI - General Chief Complaint: Abdominal Pain Stated Complaint: abd pain Time Seen by Provider: 07/09/22 13:17 Source: patient Mode of arrival: ambulatory - History of Present Illness Initial Comments: 27-year-old male presents emergency Department reporting abdominal pain. States it's been going on for the past couple of weeks. He has pain in the left upper and right upper quadrants. He saw his primary care physician who ordered laboratory studies. States is a placed him on omeprazole. He has only been able to take one dose of the medications this morning before coming into the emergency department. He states that the pain is worse with eating. Denies concern for gallbladder issues as he states that most of his family members have had her gallbladder taken out. He denies fevers. No vomiting but has nausea. Denies diarrhea, constipation, black or bloody stools. No changes in his urination to include dysuria, hematuria or difficulty voiding. Denies any family history of inflammatory bowel disease. No previous abdominal surgeries. He does not drink alcohol. No NSAID use. No other alleviating, precipitating or modifying factors - Related Data Home Medications Medication Instructions Recorded Confirmed Omeprazole [PriLOSEC] 20 mg PO DAILY 07/09/22 07/09/22 Previous Rx's Medication Instructions Recorded Famotidine [Pepcid] 20 mg PO BID #56 tablet 07/09/22 Allergies Allergy/AdvReac Type Severity Reaction Status Date / Time No Known Allergies Allergy Verified 07/09/22 14:27 Review of Systems ROS Statement: Those systems with pertinent positive or pertinent negative responses have been documented in the HPI. ROS Other: All systems not noted in ROS Statement are negative. Past Medical History Past Medical History: No Reported History History of Any Multi-Drug Resistant Organisms: None Reported Past Surgical History: No Surgical Hx Reported Past Psychological History: No Psychological Hx Reported Smoking Status: Never smoker Past Alcohol Use History: None Reported Past Drug Use History: None Reported General Exam General appearance: alert, in no apparent distress Head exam: Present: atraumatic, normocephalic, normal inspection Eye exam: Present: normal appearance, PERRL, EOMI. Absent: scleral icterus, conjunctival injection, periorbital swelling ENT exam: Present: normal exam, mucous membranes moist Neck exam: Present: normal inspection, tenderness (epigastric). Absent: meningismus, lymphadenopathy Respiratory exam: Present: normal lung sounds bilaterally. Absent: respiratory distress, wheezes, rales, rhonchi, stridor Cardiovascular Exam: Present: regular rate, normal rhythm, normal heart sounds. Absent: systolic murmur, diastolic murmur, rubs, gallop, clicks GI/Abdominal exam: Present: soft, normal bowel sounds. Absent: distended, tenderness, guarding, rebound, rigid Extremities exam: Present: normal inspection, full ROM, normal capillary refill. Absent: tenderness, pedal edema, joint swelling, calf tenderness Back exam: Present: normal inspection Neurological exam: Present: alert, oriented X3, CN II-XII intact Psychiatric exam: Present: normal affect, normal mood Skin exam: Present: warm, dry, intact, normal color. Absent: rash Course Vital Signs 07/09/22 07/09/22 11:50 17:04 Temperature 98.0 F 98 F Pulse Rate 114 H 72 Respiratory 16 18 Rate Blood Pressure 137/75 122/71 O2 Sat by Pulse 98 98 Oximetry Medical Decision Making - Medical Decision Making Was pt. sent in by a medical professional or institution? no Did you speak to anyone other than the patient for history? no Did you review nursing and triage notes? yes and I agree Were old charts reviewed? none Differential Diagnosis? MDM Differential Abdominal Pain Men: Appendicitis, cholecystitis, diverticulosis, ischemic bowel, pancreatitis, hepatitis, UTI, gastroenteritis, AAA, incarcerated hernia, bowel obstruction, constipation, inflammatory bowel, hepatitis, peptic ulcer disease, splenic infarction, perforated viscus, testicular torsion... This is not meant to be an all-inclusive list EKG interpreted by me (3pts min.)? yes X-rays interpreted by me (1pt min.)? no CT interpreted by me (1pt min.)? yes U/S interpreted by me (1pt. min.)? no What testing was considered but not performed? (CT, X-rays, U/S, labs)? Why? none What meds were considered but not given? Why? none Did you discuss the management of the patient with other professionals? no Did you reconcile home meds? no Was smoking cessation discussed for >3mins.? no Was critical care preformed (if so, how long)? no Were there social determinants of health that impacted care today? How? (Homelessness, low income, unemployed, alcoholism, drug addiction, transportat ion, low edu. Level, literacy, decrease access to med. care, detention, rehab)? no Was there de-escalation of care discussed even if they declined? (Discuss DNR or withdrawal of care, Hospice)? no What co-morbidities impacted this encounter? (DM, HTN, Smoking, COPD, CAD, Cancer, CVA, Hep., AIDS, mental health diagnosis, sleep apnea, morbid obesity)? none Was patient admitted / discharged? Upon arrival patient was placed into room 9. A thorough history and physical exam was performed. IV access is established. Patient is given Zofran 4 mg for nausea and 15 mg of Toradol. 1 L of fluid administered. Laboratory studies are conducted and reviewed. Laboratory studies within normal limits. 2+ ketones in the urine. CT of the abdomen and pelvis is pursued. Does not demonstrate any acute findings to explain the patient's symptoms. This is discussed with the patient. Recommend that the patient had an EGD, HIDA scan. I will place him on Pepcid. Patient is to follow-up with his primary care doctor to have this testing obtained. Return to the emergency room for any new or worsening symptoms. Patient agreeable to this plan and he was discharged home in stable condition Undiagnosed new problem with uncertain prognosis? yes Drug Therapy requiring intensive monitoring for toxicity (Heparin, Nitro, Insu belle, Cardizem)? no Were any procedures done? no Diagnosis/symptom? acute abd pain Acute, or Chronic, or Acute on Chronic? acute Uncomplicated (without systemic symptoms) or Complicated (systemic symptoms)? complicated Side effects of treatment? no Exacerbation, Progression, or Severe Exacerbation] progression Poses a threat to life or bodily function? no - Lab Data Result diagrams: 07/09/22 14:19 07/09/22 14:19 Lab Results 07/09/22 07/09/22 07/09/22 Range/Units 14:19 14:19 16:11 WBC 7.3 (3.8-10.6) k/uL RBC 4.80 (4.30-5.90) m/uL Hgb 14.7 (13.0-17.5) gm/dL Hct 41.6 (39.0-53.0) % MCV 86.8 (80.0-100.0) fL MCH 30.7 (25.0-35.0) pg MCHC 35.3 (31.0-37.0) g/dL RDW 13.4 (11.5-15.5) % Plt Count 213 (150-450) k/uL MPV 9.0 Neutrophils % 67 % Lymphocytes % 24 % Monocytes % 5 % Eosinophils % 0 % Basophils % 1 % Neutrophils # 4.9 (1.3-7.7) k/uL Lymphocytes # 1.7 (1.0-4.8) k/uL Monocytes # 0.4 (0-1.0) k/uL Eosinophils # 0.0 (0-0.7) k/uL Basophils # 0.0 (0-0.2) k/uL Sodium 139 (137-145) mmol/L Potassium 3.7 (3.5-5.1) mmol/L Chloride 106 (98-107) mmol/L Carbon Dioxide 24 (22-30) mmol/L Anion Gap 9 mmol/L BUN 11 (9-20) mg/dL Creatinine 0.71 (0.66-1.25) mg/dL Est GFR (CKD-EPI)AfAm >90 (>60 ml/min/1.73 sqM) Est GFR (CKD-EPI)NonAf >90 (>60 ml/min/1.73 sqM) Glucose 84 (74-99) mg/dL Calcium 9.1 (8.4-10.2) mg/dL Total Bilirubin 0.8 (0.2-1.3) mg/dL AST 24 (17-59) U/L ALT 20 (4-49) U/L Alkaline Phosphatase 74 (38-126) U/L Total Protein 6.7 (6.3-8.2) g/dL Albumin 4.1 (3.5-5.0) g/dL Lipase 37 (23-300) U/L Urine Color Yellow Urine Appearance Clear (Clear) Urine pH 5.5 (5.0-8.0) Ur Specific [place] >1.050 H (1.001-1.035) Urine Protein Negative (Negative) Urine Glucose (UA) Negative (Negative) Urine Ketones 2+ H (Negative) Urine Blood Negative (Negative) Urine Nitrite Negative (Negative) Urine Bilirubin Negative (Negative) Urine Urobilinogen <2.0 (<2.0) mg/dL Ur Leukocyte Esterase Negative (Negative) - EKG Data EKG Comments: EKG demonstrates a sinus rhythm with a rate of 76. [place] interval 188. QRS 99. QTC of 374. No acute ST segment elevations or depressions Disposition Clinical Impression: Abdominal pain Disposition: HOME SELF-CARE Condition: Stable Instructions (If sedation given, give patient instructions): Abdominal Pain (ED) Additional Instructions: I think you need an EGD and a HIDA scan. Please see your primary care doctor to have these tests ordered. Take the Pepcid in addition to your omeprazole and return for any new or worsening symptoms Prescriptions: Famotidine [Pepcid] 20 mg PO BID #56 tablet Is patient prescribed a controlled substance at d/c from ED?: No Referrals: Wander Meyers MD [Primary Care Provider] - 1-2 days Time of Disposition: 16:55
[2022-07-09] MEDS ORDERED: ONDANSETRON 4 MG/2 ML VIAL IVP STA (14:31)
[2022-07-09 14:38] LABS: Basophils % (A) 1 %; Eosinophils % (A) 0 %; HCT 41.6 % (39.0-53.0); HGB 14.7 gm/dL (13.0-17.5); Lymphocytes # (A) 1.7 k/uL (1.0-4.8); Lymphocytes % (A) 24 %; MCH 30.7 pg (25.0-35.0); MCHC 35.3 g/dL (31.0-37.0); MCV 86.8 fL (80.0-100.0); Monocytes # (A) 0.4 k/uL (0-1.0); Monocytes % (A) 5 %; Neutrophils # (A) 4.9 k/uL (1.3-7.7); Neutrophils % (A) 67 %; Platelet Count 213 k/uL (150-450); RDW 13.4 % (11.5-15.5); WBC 7.3 k/uL (3.8-10.6)
[2022-07-09 14:41] LABS: ALT 20 U/L (4-49); AST 24 U/L (17-59); African American GFR (CKD) >90 (>60 ml/min/1.73 sqM); Albumin 4.1 g/dL (3.5-5.0); Alkaline Phosphatase 74 U/L (38-126); Anion Gap 9 mmol/L; Blood Urea Nitrogen 11 mg/dL (9-20); Calcium 9.1 mg/dL (8.4-10.2); Carbon Dioxide 24 mmol/L (22-30); Chloride 106 mmol/L (98-107); Glucose 84 mg/dL (74-99); Lipase 37 U/L (23-300); Non-African American GFR(CKD) >90 (>60 ml/min/1.73 sqM); Potassium 3.7 mmol/L (3.5-5.1); Sodium 139 mmol/L (137-145); Total Bilirubin 0.8 mg/dL (0.2-1.3); Total Protein 6.7 g/dL (6.3-8.2)
--- NOTE | 2022-07-09 15:38 | CT ---
EXAMINATION TYPE: CT abdomen pelvis w con DATE OF EXAM: 07/09/2022 COMPARISON: None INDICATION: Abdominal pain and nausea DLP: 906.9 mGycm, Automated exposure control for dose reduction was used. CONTRAST: 100 mL of Isovue 300. Study performed without Oral Contrast TECHNIQUE: Axial images were obtained from above the diaphragm to the pubic rami in the axial plane a t 5 mm thick sections. Reconstructed images are reviewed on the computer in the coronal plane. FINDINGS: Limited CT sections are obtained the lung bases. The lung bases are clear. CT ABDOMEN: Liver: Normal Spleen: Normal Pancreas: Normal Adrenal glands: The adrenal glands are normal. Gallbladder: Normal Kidneys: No masses are evident. No hydronephrosis is present. No cysts are present. Delayed images were obtained through the kidneys, which remain unremarkable. Aorta: Vascular calcification is within the aorta. Inferior vena cava: Normal. CT PELVIS: Loops of bowel within the abdomen and pelvis are normal. There are loops of bowel which are incom pletely distended or lack oral contrast limiting their evaluation. Appendix: Appears to be the appendix adjacent to the terminal ileum is Normal as visualized. No suspi cious dilated tubular structure or inflammatory changes are evident. Urinary bladder: Normal. Genitourinary structures: Prostate is prominent. Osseous structures: No suspicious lytic or sclerotic lesions. IMPRESSIONS: 1. No suspicious acute changes to account for patient's pain and nausea
[2022-07-09 16:18] LABS: Appearance,Urine Clear (Clear); Bilirubin,Urine Negative (Negative); Blood,Urine Negative (Negative); Color,Urine Yellow; Glucose,Urine (UA) Negative (Negative); Ketones,Urine 2+ (Negative); Leukocyte Esterase,Urine Negative (Negative); Nitrite,Urine Negative (Negative); PH, Urine 5.5 (5.0-8.0); Protein,Urine Negative (Negative); Urobilinogen,Urine <2.0 mg/dL (<2.0)
[2022-07-09 16:20] LABS: Specific Gravity,Urine >1.050 (1.001-1.035)
[2022-07-09 17:05] VITALS: BP 122/71; PULSE 72; RESP 18; TEMP 98
== END 2022-07-09 17:05 | disposition home or self-care (01) ==
LOC: EC 11:34
DX: R10.12 Left upper quadrant pain (principal); R10.11 Right upper quadrant pain
CPT/HCPCS: 36415; 93005; 80053; 83690; 85025; 81003; 74177; 99285; 96374; 96375; J2405; J1885; Q9967

== ENCOUNTER 2022-09-15 06:19 | Day surgery (SDC) | payer OTHER ==
[2022-09-10 08:52] VITALS: BMI 21.7
[~2022-09-15 06:19] MED LIST: ACETAMINOPHEN TAB 500 MG TAB PO PRN; HEPARIN SODIUM,PORCINE/PF 5,000 UNIT/0.5 ML SYRINGE SQ PRN
[2022-09-15] MEDS ORDERED: ONDANSETRON 4 MG/2 ML VIAL ONE ×2 (07:06→07:41)
[2022-09-15] MEDS ORDERED: LACTATED RINGERS 1,000 ML IV ONE ×2 (07:10→08:57)
[2022-09-15] MEDS ORDERED: ONDANSETRON 4 MG/2 ML VIAL IVP ONE ×2 (07:32→09:16)
[2022-09-15] MEDS ORDERED: DEXAMETHASONE SOD PHOSPHATE 4 MG/ML 1 ML VIAL IVP ONE (07:33)
[2022-09-15] MEDS ORDERED: SCOPOLAMINE 1 MG/72 HR PATCH TRANSDERM ONE (07:33)
--- NOTE | 2022-09-15 07:39 | P.GSHP ---
History of Present Illness H&P Date: 09/15/22 Chief Complaint: Right upper quadrant pain This a 27-year-old male who's had complete right quadrant pain. His recent HIDA scan shows a diminished ejection fraction consistent with chronic cholecystitis/biliary dyskinesia. Patient presents today for laparoscopic cholecystectomy. Past Medical History Past Medical History: GERD/Reflux Additional Past Medical History / Comment(s): GALLBLADDER DISORDER History of Any Multi-Drug Resistant Organisms: None Reported Past Surgical History: No Surgical Hx Reported Past Anesthesia/Blood Transfusion Reactions: No Reported Reaction Smoking Status: Never smoker - Past Family History Mother Family Medical History: No Reported History Medications and Allergies Home Medications Medication Instructions Recorded Confirmed Type Famotidine [Pepcid] 20 mg PO BID #56 tablet 07/09/22 09/15/22 Rx Omeprazole [PriLOSEC] 20 mg PO DAILY 07/09/22 09/15/22 History Allergies Allergy/AdvReac Type Severity Reaction Status Date / Time No Known Allergies Allergy Verified 09/15/22 06:58 Surgical - Exam Vital Signs Temp Pulse Resp BP Pulse Ox 99 F 110 H 16 129/84 96 09/15/22 07:10 09/15/22 07:10 09/15/22 07:10 09/15/22 07:10 09/15/22 07:10 - General well developed, well nourished, no distress - Eyes PERRL - ENT normal pinna - Neck no masses - Respiratory normal expansion - Cardiovascular Rhythm: regular - Abdomen Abdomen: soft, non tender Assessment and Plan Assessment: Right quadrant pain, chronic cholecystitis, we'll perform laparoscopic cholecystectomy
[2022-09-15] MEDS ORDERED: ROCURONIUM 10 MG/ML (5 ML VIAL) IV ONE (07:41)
[2022-09-15] MEDS ORDERED: KETOROLAC 15 MG/ML 1 ML VIAL ONE (07:41)
[2022-09-15] MEDS ORDERED: DEXAMETHASONE SOD PHOS (MDV) 100 MG/10 ML VIAL ONE (07:41)
[2022-09-15] MEDS ORDERED: PROPOFOL 10 MG/ML 20 ML VIAL IV ONE (07:41)
[2022-09-15] MEDS ORDERED: MIDAZOLAM 2 MG/2 ML VIAL ONE (07:41)
[2022-09-15] MEDS ORDERED: SUCCINYLCHOLINE CHLORIDE 200 MG/10 ML VIAL IV ONE (07:41)
[2022-09-15] MEDS ORDERED: fentaNYL (PF) 50 MCG/ML 2 ML AMP ONE (07:41)
[2022-09-15] MEDS ORDERED: BUPIVACAIN-EPI 0.25%-1:200,000 30 ML VIAL SQ ONE (08:11)
--- NOTE | 2022-09-15 08:23 | P.OP ---
Date of Procedure: 09/15/22 Preoperative Diagnosis: Chronic cholecystitis Postoperative Diagnosis: Chronic cholecystitis Procedure(s) Performed: Laparoscopic cholecystectomy Anesthesia: AUGUSTO Surgeon: Isidro Sterling Estimated Blood Loss (ml): 5 Pathology: other (Gallbladder) Condition: stable Disposition: PACU Description of Procedure: The patient was placed on the operating table. The patient received a general endotracheal tube anesthesia. The patients abdomen was prepped and draped in the usual sterile fashion. Through an infraumbilical stab incision, the fascia of the anterior abdominal wall was grasped with a pair of Kochers and then the Veress needle was placed in the peritoneal cavity. Position of the Veress needle was confirmed with positive drop test. The abdomen was then insufflated. After adequate insufflation, the 10 mm trocar was placed in the peritoneal cavity. Following this the laparoscope was placed in the peritoneal cavity. The patient was placed in the head-up, right side up position and then a 5 mm trocar was placed in the right lateral and right subcostal position under direct visualization. A 8 mm trocar was placed in the epigastric position. The gallbladder was grasped in the fundus and infundibulum. Traction on the gallbladder was placed in the lateral and the cephalad positions. The triangle of Calot was visualized.. The cystic duct was bluntly dissected until the union of the cystic duct and common bile duct was seen. A critical view of safety was achieved. The cystic duct was then divided and sealed with the Harmonic scissors. A PDS Endoloop was then placed throughout the cystic duct stump. The cystic artery divided and sealed with the Harmonic scissors. The gallbladder was then removed from the liver bed using Harmonic scissors. The gallbladder was then extracted through the epigastric port site. Operative field was checked for any bleeding spots and Harmonic scissors was used to coagulate the liver bed. The abdomen was irrigated. The trocars were removed. The skin was closed using interrupted 3-0 Vicryl suture. Dermabond dressing were applied. The patient tolerated the procedure well.
[2022-09-15 08:36] VITALS: TEMP 98
[2022-09-15] MEDS ORDERED: METOCLOPRAMIDE 5 MG/ML 2 ML VIAL IVP PRN (09:16)
[2022-09-15] MEDS ORDERED: DEXAMETHASONE SOD PHOSPHATE 4 MG/ML 1 ML VIAL IV ONE (09:16)
[2022-09-15] MEDS ORDERED: FAMOTIDINE 20 MG/2 ML VIAL IV PRN (09:16)
[2022-09-15] MEDS ORDERED: HYDROmorphone 0.5 MG/0.5 ML SYRINGE IVP PRN (09:16)
[2022-09-15] MEDS ORDERED: LACTATED RINGERS 1,000 ML IV SCH (09:16)
[2022-09-15] MEDS ORDERED: LIDOCAINE 1% (10MG/ML) FOR IV START INTRADERMA PRN (09:16)
[2022-09-15 09:46] VITALS: BP 144/83; PULSE 82; RESP 16
== END 2022-09-15 10:30 | disposition home or self-care (01) ==
LOC: OR 06:19
PROVIDERS: ATTEND Surgery
DX: K81.1 Chronic cholecystitis (principal); K82.8 Other specified diseases of gallbladder; K21.9 Gastro-esophageal reflux disease without esophagitis; Z87.19 Personal history of other diseases of the digestive system; Z79.899 Other long term (current) drug therapy; Z83.3 Family history of diabetes mellitus
CPT/HCPCS: 88304; 47562; J2250; J0330; J1100 ×2; J0690; J2405; J3010; J1885; J2704; J1644

== ENCOUNTER 2023-11-10 07:14 | Inpatient (IN) | payer OTHER ==
[2023-11-10] MEDS: KETOROLAC 15 MG/ML 1 ML VIAL IVP STA (08:09)
[2023-11-10] MEDS: ONDANSETRON 4 MG/2 ML VIAL IVP STA (08:09)
[2023-11-10] MEDS: PANTOPRAZOLE 40 MG/10 ML VIAL IVP STA (08:09)
--- NOTE | 2023-11-10 08:09 | ED ---
General Adult HPI - General Chief complaint: Overdose Stated complaint: Intentional overdose Time Seen by Provider: 11/10/23 07:32 Source: patient, RN notes reviewed, old records reviewed Mode of arrival: ambulatory Limitations: no limitations - History of Present Illness Initial comments: Patient is a 28-year-old male who presents emergency department complaining of suicidal attempt via external overdose. Patient took a total of 10 tablets of 5 mg oxycodone as well as 14 tablets of 500 mg Tylenol at approximately 2340 on 11/09/2023 which was last night. I evaluate the patient at 730 on 11/10/2023. Patient states he does have a history of depression as well as prior suicide ideation and attempt. Denies any homicidal ideations, times complaints. Denies any hallucinations. Is currently complaining of some abdominal discomfort as we ll as nausea. Had a few episodes of emesis at home. Denies any cough or difficulty breathing or chest pain. No other acute complaints at this time. Presents for further evaluation. Presents with family friend who is willing to petition the patient. - Related Data Home Medications Medication Instructions Recorded Confirmed No Known Home Medications 11/10/23 11/10/23 Allergies Allergy/AdvReac Type Severity Reaction Status Date / Time No Known Allergies Allergy Verified 11/10/23 10:43 Review of Systems ROS Statement: Those systems with pertinent positive or pertinent negative responses have been documented in the HPI. Review of Systems: CONST: Denies fever EYES: Denies blurry vision ENT: Denies nasal congestion C/V: Denies Chest pain RESP: Denies shortness of breath GI: Endorses abdominal discomfort, nausea : Denies dysuria SKIN: Denies rash. MSK: Denies joint pain. NEURO: Denies headache ROS Other: All systems not noted in ROS Statement are negative. Past Medical History Past Medical History: GERD/Reflux Additional Past Medical History / Comment(s): GALLBLADDER DISORDER History of Any Multi-Drug Resistant Organisms: None Reported Past Surgical History: No Surgical Hx Reported Past Anesthesia/Blood Transfusion Reactions: No Reported Reaction Past Psychological History: No Psychological Hx Reported Smoking Status: Never smoker Past Alcohol Use History: None Reported Past Drug Use History: None Reported - Past Family History Mother Family Medical History: No Reported History General Exam - General Exam Comments Initial Comments: General: Appears in no acute distress. HEAD: Appears in mild discomfort EYES: PERRLA, EOMI, conjunctiva normal, no discharge. ENT: Hearing grossly intact, normal oropharynx. RESPIRATORY: Clear breath sounds bilaterally. No wheezes, rales, or rhonchi. C/V: Regular rate and rhythm. S1 and S2 auscultated, no edema, peripheral pulses 2+ and intact throughout ABD: Abd is soft, nontender, nondistended EXT: Normal range of motion, no obvious deformity SKIN: No rashes or lesions observed on exposed skin. NEURO: Alert and oriented x 4. Limitations: no limitations Course Vital Signs 11/10/23 11/10/23 07:17 10:16 Temperature 98.7 F Pulse Rate 73 74 Respiratory 20 18 Rate Blood Pressure 135/83 183/80 O2 Sat by Pulse 98 96 Oximetry Medical Decision Making - Medical Decision Making Was pt. sent in by a medical professional or institution (, PA, PATTERN FILER, urgent care, hospital, or group home...) When possible be specific @ -No Did you speak to anyone other than the patient for history (EMS, parent, family, police, friend...)? What history was obtained from this source @ -Spoke with family friend who is concerned regarding patient suicide attempt and is willing to petition the patient Did you review nursing and triage notes (agree or disagree)? Why? @ -I reviewed and agree with nursing and triage notes Were old charts reviewed (outside hosp., previous admission, EMS record, old EKG, old radiological studies, urgent care reports/EKG's, group home records)? Report findings @ -Confirmed with old charts that patient's medications were previously prescribed to him, the oxycodone IR is from a prior surgery. Differential Diagnosis (chest pain, altered mental status, abdominal pain women, abdominal pain men, vaginal bleeding, weakness, fever, dyspnea, syncope, headache, dizziness, GI bleed, back pain, seizure, CVA, palpatations, mental health, musculoskeletal)? @ -Intentional overdose, suicide attempt, Tylenol toxicity, gastritis, electrolyte abnormality, GUERDA. This list is not all inclusive. EKG interpreted by me (3pts min.). @ -As above X-rays interpreted by me (1pt min.). @ -None done CT interpreted by me (1pt min.). @ -None done U/S interpreted by me (1pt. min.). @ -None done What testing was considered but not performed or refused? (CT, X-rays, U/S, labs)? Why? @ -None What meds were considered but not given or refused? Why? @ -None Did you discuss the management of the patient with other professionals (professionals i.e. , PA, PATTERN FILER, lab, RT, psych nurse, social work manager, performance specialist, teacher, financial aids officer, bilingual patient support caseworker)? Give summary @ -Poison control contacted by nursing staff.Poison control recommends monitoring electrolytes, keeping mag above 2, potassium above 4 and calcium of 9.5. Recommends treatment with NAC despite the on toxic level of Tylenol at this time. This is due to the patient's elevated liver enzymes. Recommend admission for further monitoring. I spoke with Dr. Cabral of GI who agreed to the consult and requested repeat LFTs. I spoke with admitting team, Dr. Mason who accepted the admission. Was smoking cessation discussed for >3mins.? @ -No Was critical care preformed (if so, how long)? @ -yes, 32 min Were there social determinants of health that impacted care today? How? (Homelessness, low income, unemployed, alcoholism, drug addiction, tr ansportation, low edu. Level, literacy, decrease access to med. care, longterm, rehab)? @ -No Was there de-escalation of care discussed even if they declined (Discuss DNR or withdrawal of care, Hospice)? DNR status @ -No What co-morbidities impacted this encounter? (DM, HTN, Smoking, COPD, CAD, Cancer, CVA, ARF, Chemo, Hep., AIDS, mental health diagnosis, sleep apnea, morbid obesity)? @ -None Was patient admitted / discharged? Hospital course, mention meds given and route, prescriptions, significant lab abnormalities, going to OR and other pertinent info. @ -Based on patient's presentation and physical exam, patient had an intentional overdose with the intent of harming himself with suicide attempt. Patient took a total of 10 pills of oxycodone 5 mg and 14 pills of Tylenol 500. This is a total ingestion of 7 g of Tylenol. One-time toxic ingestion for the patient based on 150 mg/kg would be approximately 12 g of Tylenol. We will obtain an overdose workup and then speak with poison control. Patient be symptomatically treated with IV fluids, Zofran, Protonix. He will also be given Toradol for pain. Patient was in agreement this plan. Vital signs are currently within acceptable limits. No signs of respiratory distress at this time. EKG shows no signs of acute ischemia. Patient's laboratory studies remarkable for hypomagnesemia, hypokalemia, hypocalcemia. Patient has slightly elevated LFTs at 467 and 331. Tylenol level is 28.9 at the 8-hour marii. Remainder the workup unremarkable. UDS is still pending. I discussed results with the patient. He will be admitted to the hospital after discussion with poison control.Poison control recommends monitoring electrolytes , keeping mag above 2, potassium above 4 and calcium of 9.5. Recommends treatment with NAC despite the on toxic level of Tylenol at this time. This is due to the patient's elevated liver enzymes. Recommend admission for further monitoring. Electrolytes replenished. Psychiatry consulted for evaluation on inpatient basis. I spoke with Dr. Cabral of who agreed to the consult and requested repeat LFTs. I spoke with admitting team, Dr. Mason who accepted the admission. Undiagnosed new problem with uncertain prognosis? @ -No Drug Therapy requiring intensive monitoring for toxicity (Heparin, Nitro, Insulin, Cardizem)? @ -No Were any procedures done? @ -No Diagnosis/symptom? @ -Hypokalemia, hypocalcemia, transaminitis, intentional overdose with acetaminophen, suicide attempt Acute, or Chronic, or Acute on Chronic? @ -Acute Uncomplicated (without systemic symptoms) or Complicated (systemic symptoms)? @ -Complicated Side effects of treatment? @ -None Exacerbation, Progression, or Severe Exacerbation] @ -No Poses a threat to life or bodily function? @ -Yes - Lab Data Result diagrams: 11/10/23 07:32 11/10/23 07:32 Lab Results 11/10/23 11/10/23 11/10/23 Range/Units 07:32 07:32 07:32 WBC 8.0 (3.8-10.6) k/uL RBC 4.61 (4.30-5.90) m/uL Hgb 14.1 (13.0-17.5) gm/dL Hct 42.9 (39.0-53.0) % MCV 93.0 (80.0-100.0) fL MCH 30.6 (25.0-35.0) pg MCHC 32.9 (31.0-37.0) g/dL RDW 13.2 (11.5-15.5) % Plt Count 208 (150-450) k/uL MPV 8.4 Neutrophils % 78 % Lymphocytes % 13 % Monocytes % 7 % Eosinophils % 0 % Basophils % 0 % Neutrophils # 6.3 (1.3-7.7) k/uL Lymphocytes # 1.0 (1.0-4.8) k/uL Monocytes # 0.6 (0-1.0) k/uL Eosinophils # 0.0 (0-0.7) k/uL Basophils # 0.0 (0-0.2) k/uL PT (10.0-12.5) sec INR (<1.2) Sodium 140 (137-145) mmol/L Potassium 3.2 L (3.5-5.1) mmol/L Chloride 110 H (98-107) mmol/L Carbon Dioxide 25 (22-30) mmol/L Anion Gap 5 mmol/L BUN 13 (9-20) mg/dL Creatinine 0.66 (0.66-1.25) mg/dL Est GFR (CKD-EPI)AfAm >90 (>60 ml/min/1.73 sqM) Est GFR (CKD-EPI)NonAf >90 (>60 ml/min/1.73 sqM) Glucose 123 H (74-99) mg/dL Plasma Lactic Acid Juan (0.7-2.0) mmol/L Calcium 8.0 L (8.4-10.2) mg/dL Magnesium 1.7 (1.6-2.3) mg/dL Total Bilirubin 0.8 (0.2-1.3) mg/dL AST 467 H (17-59) U/L ALT 331 H (4-49) U/L Alkaline Phosphatase 90 (38-126) U/L Creatine Kinase 55 (55-170) U/L Total Protein 5.9 L (6.3-8.2) g/dL Albumin 3.4 L (3.5-5.0) g/dL Urine Color Urine Appearance (Clear) Urine pH (5.0-8.0) Ur Specific [place] (1.001-1.035) Urine Protein (Negative) Urine Glucose (UA) (Negative) Urine Ketones (Negative) Urine Blood (Negative) Urine Nitrite (Negative) Urine Bilirubin (Negative) Urine Urobilinogen (<2.0) mg/dL Ur Leukocyte Esterase (Negative) Urine WBC (0-5) /hpf Ur Squamous Epith Cells (0-4) /hpf Hyaline Casts (0-2) /lpf Urine Mucus (None) /hpf Salicylates <1.0 mg/dL Urine Opiates Screen (NotDetected) Ur Oxycodone Screen (NotDetected) Urine Methadone Screen (NotDetected) Acetaminophen 28.9 ug/mL Ur Barbiturates Screen (NotDetected) U Tricyclic Antidepress (NotDetected) Ur Phencyclidine Scrn (NotDetected) Ur Amphetamines Screen (NotDetected) U Methamphetamines Scrn (NotDetected) U Benzodiazepines Scrn (NotDetected) Urine Cocaine Screen (NotDetected) U Marijuana (THC) Screen (NotDetected) Serum Alcohol <10 mg/dL 11/10/23 11/10/23 11/10/23 Range/Units 08:00 10:15 10:15 WBC (3.8-10.6) k/uL RBC (4.30-5.90) m/uL Hgb (13.0-17.5) gm/dL Hct (39.0-53.0) % MCV (80.0-100.0) fL MCH (25.0-35.0) pg MCHC (31.0-37.0) g/dL RDW (11.5-15.5) % Plt Count (150-450) k/uL MPV Neutrophils % % Lymphocytes % % Monocytes % % Eosinophils % % Basophils % % Neutrophils # (1.3-7.7) k/uL Lymphocytes # (1.0-4.8) k/uL Monocytes # (0-1.0) k/uL Eosinophils # (0-0.7) k/uL Basophils # (0-0.2) k/uL PT 11.0 (10.0-12.5) sec INR 1.0 (<1.2) Sodium (137-145) mmol/L Potassium (3.5-5.1) mmol/L Chloride (98-107) mmol/L Carbon Dioxide (22-30) mmol/L Anion Gap mmol/L BUN (9-20) mg/dL Creatinine (0.66-1.25) mg/dL Est GFR (CKD-EPI)AfAm (>60 ml/min/1.73 sqM) Est GFR (CKD-EPI)NonAf (>60 ml/min/1.73 sqM) Glucose (74-99) mg/dL Plasma Lactic Acid Juan (0.7-2.0) mmol/L Calcium (8.4-10.2) mg/dL Magnesium (1.6-2.3) mg/dL Total Bilirubin (0.2-1.3) mg/dL AST (17-59) U/L ALT (4-49) U/L Alkaline Phosphatase (38-126) U/L Creatine Kinase (55-170) U/L Total Protein (6.3-8.2) g/dL Albumin (3.5-5.0) g/dL Urine Color Yellow Urine Appearance Clear (Clear) Urine pH 6.0 (5.0-8.0) Ur Specific [place] 1.049 H (1.001-1.035) Urine Protein 1+ H (Negative) Urine Glucose (UA) 1+ H (Negative) Urine Ketones Negative (Negative) Urine Blood Negative (Negative) Urine Nitrite Negative (Negative) Urine Bilirubin 1+ H (Negative) Urine Urobilinogen 3.0 (<2.0) mg/dL Ur Leukocyte Esterase Negative (Negative) Urine WBC 3 (0-5) /hpf Ur Squamous Epith Cells <1 (0-4) /hpf Hyaline Casts 4 H (0-2) /lpf Urine Mucus Few H (None) /hpf Salicylates mg/dL Urine Opiates Screen Detected H (NotDetected) Ur Oxycodone Screen Detected H (NotDetected) Urine Methadone Screen Not Detected (NotDetected) Acetaminophen ug/mL Ur Barbiturates Screen Not Detected (NotDetected) U Tricyclic Antidepress Not Detected (NotDetected) Ur Phencyclidine Scrn Not Detected (NotDetected) Ur Amphetamines Screen Not Detected (NotDetected) U Methamphetamines Scrn Not Detected (NotDetected) U Benzodiazepines Scrn Detected H (NotDetected) Urine Cocaine Screen Not Detected (NotDetected) U Marijuana (THC) Screen Not Detected (NotDetected) Serum Alcohol mg/dL 11/10/23 Range/Units 10:15 WBC (3.8-10.6) k/uL RBC (4.30-5.90) m/uL Hgb (13.0-17.5) gm/dL Hct (39.0-53.0) % MCV (80.0-100.0) fL MCH (25.0-35.0) pg MCHC (31.0-37.0) g/dL RDW (11.5-15.5) % Plt Count (150-450) k/uL MPV Neutrophils % % Lymphocytes % % Monocytes % % Eosinophils % % Basophils % % Neutrophils # (1.3-7.7) k/uL Lymphocytes # (1.0-4.8) k/uL Monocytes # (0-1.0) k/uL Eosinophils # (0-0.7) k/uL Basophils # (0-0.2) k/uL PT (10.0-12.5) sec INR (<1.2) Sodium (137-145) mmol/L Potassium (3.5-5.1) mmol/L Chloride (98-107) mmol/L Carbon Dioxide (22-30) mmol/L Anion Gap mmol/L BUN (9-20) mg/dL Creatinine (0.66-1.25) mg/dL Est GFR (CKD-EPI)AfAm (>60 ml/min/1.73 sqM) Est GFR (CKD-EPI)NonAf (>60 ml/min/1.73 sqM) Glucose (74-99) mg/dL Plasma Lactic Acid Juan 1.7 (0.7-2.0) mmol/L Calcium (8.4-10.2) mg/dL Magnesium (1.6-2.3) mg/dL Total Bilirubin (0.2-1.3) mg/dL AST (17-59) U/L ALT (4-49) U/L Alkaline Phosphatase (38-126) U/L Creatine Kinase (55-170) U/L Total Protein (6.3-8.2) g/dL Albumin (3.5-5.0) g/dL Urine Color Urine Appearance (Clear) Urine pH (5.0-8.0) Ur Specific [place] (1.001-1.035) Urine Protein (Negative) Urine Glucose (UA) (Negative) Urine Ketones (Negative) Urine Blood (Negative) Urine Nitrite (Negative) Urine Bilirubin (Negative) Urine Urobilinogen (<2.0) mg/dL Ur Leukocyte Esterase (Negative) Urine WBC (0-5) /hpf Ur Squamous Epith Cells (0-4) /hpf Hyaline Casts (0-2) /lpf Urine Mucus (None) /hpf Salicylates mg/dL Urine Opiates Screen (NotDetected) Ur Oxycodone Screen (NotDetected) Urine Methadone Screen (NotDetected) Acetaminophen ug/mL Ur Barbiturates Screen (NotDetected) U Tricyclic Antidepress (NotDetected) Ur Phencyclidine Scrn (NotDetected) Ur Amphetamines Screen (NotDetected) U Methamphetamines Scrn (NotDetected) U Benzodiazepines Scrn (NotDetected) Urine Cocaine Screen (NotDetected) U Marijuana (THC) Screen (NotDetected) Serum Alcohol mg/dL - EKG Data -: EKG Interpreted by Me EKG Comments: 12-lead Electrocardiogram Interpretation Note EKG was reviewed and interpreted by myself. 12-lead ECG performed at 0759 is interpreted by me as revealing normal sinus rhythm at a rate of 60 beats per minute. [place] is normal. NH interval is 164 ms, QRS duration is 99 ms, QTc is 386 ms.. There were no ST or T wave abnormalities to suggest myocardial ischemia or injury. R wave progression across the precordium was satisfactory. By my interpretation this EKG is non-diagnostic for acute ischemia. Disposition Clinical Impression: Acetaminophen overdose, Intentional overdose, Suicidal overdose, Transaminitis, Hypokalemia, Hypocalcemia Disposition: ADMITTED IP TO THIS HOSP Condition: Serious Referrals: Wander Meyers [Primary Care Provider] - 1-2 days Time of Disposition: 10:12
[2023-11-10] MEDS: SODIUM CHLORIDE 0.9% 1,000 ML IV STA (08:11)
[2023-11-10 08:29] LABS: Basophils % (A) 0 %; Eosinophils % (A) 0 %; HCT 42.9 % (39.0-53.0); HGB 14.1 gm/dL (13.0-17.5); Lymphocytes % (A) 13 %; MCH 30.6 pg (25.0-35.0); MCHC 32.9 g/dL (31.0-37.0); Mean Platelet Volume 8.4; Monocytes # (A) 0.6 k/uL (0-1.0); Monocytes % (A) 7 %; Neutrophils # (A) 6.3 k/uL (1.3-7.7); Neutrophils % (A) 78 %; Platelet Count 208 k/uL (150-450); RBC 4.61 m/uL (4.30-5.90); RDW 13.2 % (11.5-15.5)
[2023-11-10 08:43] LABS: ALT 331 U/L (4-49); AST 467 U/L (17-59); Acetaminophen 28.9 ug/mL; African American GFR (CKD) >90 (>60 ml/min/1.73 sqM); Albumin 3.4 g/dL (3.5-5.0); Alcohol <10 mg/dL; Alkaline Phosphatase 90 U/L (38-126); Anion Gap 5 mmol/L; Blood Urea Nitrogen 13 mg/dL (9-20); Carbon Dioxide 25 mmol/L (22-30); Chloride 110 mmol/L (98-107); Glucose 123 mg/dL (74-99); Non-African American GFR(CKD) >90 (>60 ml/min/1.73 sqM); Potassium 3.2 mmol/L (3.5-5.1); Salicylate <1.0 mg/dL; Sodium 140 mmol/L (137-145); Total Bilirubin 0.8 mg/dL (0.2-1.3); Total Protein 5.9 g/dL (6.3-8.2)
[2023-11-10] MEDS ORDERED: ONDANSETRON 4 MG/2 ML VIAL IVP PRN ×2 (09:36→10:12)
[2023-11-10] MEDS: CALCIUM GLUCONATE IN NACL 1 GM in SALINE 1 100ML.BAG IVPB ONE (10:03)
[2023-11-10] MEDS: POTASSIUM CHLORIDE ER 20 MEQ TAB.ER PO STA (10:05)
[2023-11-10] MEDS: ACETYLCYSTEINE 6,000 MG/30 ML VIAL PO ONE (10:06)
[2023-11-10] MEDS ORDERED: NALOXONE 0.4 MG/ML 1 ML VIAL IV PRN (10:12)
[2023-11-10] MEDS: SODIUM CHLORIDE 0.9% 1,000 ML IV SCH (10:30)
[2023-11-10] MEDS: METOCLOPRAMIDE 5 MG/ML 2 ML VIAL IVP STA (10:31)
[2023-11-10 10:33] LABS: Appearance,Urine Clear (Clear); Bilirubin,Urine 1+ (Negative); Blood,Urine Negative (Negative); Color,Urine Yellow; Glucose,Urine (UA) 1+ (Negative); Hyaline Casts,Urine 4 /lpf (0-2); Ketones,Urine Negative (Negative); Leukocyte Esterase,Urine Negative (Negative); Mucus,Urine Few /hpf; Nitrite,Urine Negative (Negative); Protein,Urine 1+ (Negative); Squamous Epithelial Cell,Urine <1 /hpf (0-4); WBC,Urine 3 /hpf (0-5)
[2023-11-10 10:52] LABS: Opiate Screen,Urine Detected (NotDetected)
[2023-11-10 10:53] LABS: Amphetamine Screen,Urine Not Detected (NotDetected); Barbiturate Screen,Urine Not Detected (NotDetected); Benzodiazepines Screen,Urine Detected (NotDetected); Cocaine Screen,Urine Not Detected (NotDetected); Methadone Screen, Urine Not Detected (NotDetected); Oxycodone Screen, Urine Detected (NotDetected); Phencyclidine Screen,Urine Not Detected (NotDetected); Tricyclic Antidepressant,Urine Not Detected (NotDetected); Urn Cannabinoid Scrn Not Detected (NotDetected)
[2023-11-10 11:24] LABS: Specific Gravity,Urine 1.049 (1.001-1.035)
[2023-11-10 14:31] LABS: Magnesium 1.7 mg/dL (1.6-2.3)
[2023-11-10] MEDS: ACETYLCYSTEINE 6,000 MG/30 ML VIAL PO SCH (14:33)
[2023-11-10 14:59] LABS: ALT 375 U/L (4-49); AST 343 U/L (17-59); African American GFR (CKD) >90 (>60 ml/min/1.73 sqM); Albumin 3.8 g/dL (3.5-5.0); Alkaline Phosphatase 113 U/L (38-126); Anion Gap 4 mmol/L; Blood Urea Nitrogen 13 mg/dL (9-20); Calcium 9.2 mg/dL (8.4-10.2); Carbon Dioxide 28 mmol/L (22-30); Chloride 106 mmol/L (98-107); Glucose 110 mg/dL (74-99); Non-African American GFR(CKD) >90 (>60 ml/min/1.73 sqM); Potassium 4.4 mmol/L (3.5-5.1); Sodium 138 mmol/L (137-145); Total Bilirubin 0.9 mg/dL (0.2-1.3); Total Protein 6.4 g/dL (6.3-8.2)
[2023-11-10] MEDS: MAGNESIUM SULFATE-D5W PMX 1 GM in DEXTROSE/WATER 1 100ML.BAG IVPB ONE (15:18)
--- NOTE | 2023-11-10 15:20 | ED ---
Medical Decision Making - Lab Data Result diagrams: 11/10/23 07:32 11/10/23 14:16 Lab Results 11/10/23 11/10/23 11/10/23 Range/Units 07:32 07:32 07:32 WBC 8.0 (3.8-10.6) k/uL RBC 4.61 (4.30-5.90) m/uL Hgb 14.1 (13.0-17.5) gm/dL Hct 42.9 (39.0-53.0) % MCV 93.0 (80.0-100.0) fL MCH 30.6 (25.0-35.0) pg MCHC 32.9 (31.0-37.0) g/dL RDW 13.2 (11.5-15.5) % Plt Count 208 (150-450) k/uL MPV 8.4 Neutrophils % 78 % Lymphocytes % 13 % Monocytes % 7 % Eosinophils % 0 % Basophils % 0 % Neutrophils # 6.3 (1.3-7.7) k/uL Lymphocytes # 1.0 (1.0-4.8) k/uL Monocytes # 0.6 (0-1.0) k/uL Eosinophils # 0.0 (0-0.7) k/uL Basophils # 0.0 (0-0.2) k/uL PT (10.0-12.5) sec INR (<1.2) Sodium 140 (137-145) mmol/L Potassium 3.2 L (3.5-5.1) mmol/L Chloride 110 H (98-107) mmol/L Carbon Dioxide 25 (22-30) mmol/L Anion Gap 5 mmol/L BUN 13 (9-20) mg/dL Creatinine 0.66 (0.66-1.25) mg/dL Est GFR (CKD-EPI)AfAm >90 (>60 ml/min/1.73 sqM) Est GFR (CKD-EPI)NonAf >90 (>60 ml/min/1.73 sqM) Glucose 123 H (74-99) mg/dL Plasma Lactic Acid Juan (0.7-2.0) mmol/L Calcium 8.0 L (8.4-10.2) mg/dL Magnesium 1.7 (1.6-2.3) mg/dL Total Bilirubin 0.8 (0.2-1.3) mg/dL AST 467 H (17-59) U/L ALT 331 H (4-49) U/L Alkaline Phosphatase 90 (38-126) U/L Creatine Kinase 55 (55-170) U/L Total Protein 5.9 L (6.3-8.2) g/dL Albumin 3.4 L (3.5-5.0) g/dL Urine Color Urine Appearance (Clear) Urine pH (5.0-8.0) Ur Specific [place] (1.001-1.035) Urine Protein (Negative) Urine Glucose (UA) (Negative) Urine Ketones (Negative) Urine Blood (Negative) Urine Nitrite (Negative) Urine Bilirubin (Negative) Urine Urobilinogen (<2.0) mg/dL Ur Leukocyte Esterase (Negative) Urine WBC (0-5) /hpf Ur Squamous Epith Cells (0-4) /hpf Hyaline Casts (0-2) /lpf Urine Mucus (None) /hpf Salicylates <1.0 mg/dL Urine Opiates Screen (NotDetected) Ur Oxycodone Screen (NotDetected) Urine Methadone Screen (NotDetected) Acetaminophen 28.9 ug/mL Ur Barbiturates Screen (NotDetected) U Tricyclic Antidepress (NotDetected) Ur Phencyclidine Scrn (NotDetected) Ur Amphetamines Screen (NotDetected) U Methamphetamines Scrn (NotDetected) U Benzodiazepines Scrn (NotDetected) Urine Cocaine Screen (NotDetected) U Marijuana (THC) Screen (NotDetected) Serum Alcohol <10 mg/dL 11/10/23 11/10/23 11/10/23 Range/Units 08:00 10:15 10:15 WBC (3.8-10.6) k/uL RBC (4.30-5.90) m/uL Hgb (13.0-17.5) gm/dL Hct (39.0-53.0) % MCV (80.0-100.0) fL MCH (25.0-35.0) pg MCHC (31.0-37.0) g/dL RDW (11.5-15.5) % Plt Count (150-450) k/uL MPV Neutrophils % % Lymphocytes % % Monocytes % % Eosinophils % % Basophils % % Neutrophils # (1.3-7.7) k/uL Lymphocytes # (1.0-4.8) k/uL Monocytes # (0-1.0) k/uL Eosinophils # (0-0.7) k/uL Basophils # (0-0.2) k/uL PT 11.0 (10.0-12.5) sec INR 1.0 (<1.2) Sodium (137-145) mmol/L Potassium (3.5-5.1) mmol/L Chloride (98-107) mmol/L Carbon Dioxide (22-30) mmol/L Anion Gap mmol/L BUN (9-20) mg/dL Creatinine (0.66-1.25) mg/dL Est GFR (CKD-EPI)AfAm (>60 ml/min/1.73 sqM) Est GFR (CKD-EPI)NonAf (>60 ml/min/1.73 sqM) Glucose (74-99) mg/dL Plasma Lactic Acid Juan (0.7-2.0) mmol/L Calcium (8.4-10.2) mg/dL Magnesium (1.6-2.3) mg/dL Total Bilirubin (0.2-1.3) mg/dL AST (17-59) U/L ALT (4-49) U/L Alkaline Phosphatase (38-126) U/L Creatine Kinase (55-170) U/L Total Protein (6.3-8.2) g/dL Albumin (3.5-5.0) g/dL Urine Color Yellow Urine Appearance Clear (Clear) Urine pH 6.0 (5.0-8.0) Ur Specific [place] 1.049 H (1.001-1.035) Urine Protein 1+ H (Negative) Urine Glucose (UA) 1+ H (Negative) Urine Ketones Negative (Negative) Urine Blood Negative (Negative) Urine Nitrite Negative (Negative) Urine Bilirubin 1+ H (Negative) Urine Urobilinogen 3.0 (<2.0) mg/dL Ur Leukocyte Esterase Negative (Negative) Urine WBC 3 (0-5) /hpf Ur Squamous Epith Cells <1 (0-4) /hpf Hyaline Casts 4 H (0-2) /lpf Urine Mucus Few H (None) /hpf Salicylates mg/dL Urine Opiates Screen Detected H (NotDetected) Ur Oxycodone Screen Detected H (NotDetected) Urine Methadone Screen Not Detected (NotDetected) Acetaminophen ug/mL Ur Barbiturates Screen Not Detected (NotDetected) U Tricyclic Antidepress Not Detected (NotDetected) Ur Phencyclidine Scrn Not Detected (NotDetected) Ur Amphetamines Screen Not Detected (NotDetected) U Methamphetamines Scrn Not Detected (NotDetected) U Benzodiazepines Scrn Detected H (NotDetected) Urine Cocaine Screen Not Detected (NotDetected) U Marijuana (THC) Screen Not Detected (NotDetected) Serum Alcohol mg/dL 11/10/23 11/10/23 Range/Units 10:15 14:16 WBC (3.8-10.6) k/uL RBC (4.30-5.90) m/uL Hgb (13.0-17.5) gm/dL Hct (39.0-53.0) % MCV (80.0-100.0) fL MCH (25.0-35.0) pg MCHC (31.0-37.0) g/dL RDW (11.5-15.5) % Plt Count (150-450) k/uL MPV Neutrophils % % Lymphocytes % % Monocytes % % Eosinophils % % Basophils % % Neutrophils # (1.3-7.7) k/uL Lymphocytes # (1.0-4.8) k/uL Monocytes # (0-1.0) k/uL Eosinophils # (0-0.7) k/uL Basophils # (0-0.2) k/uL PT (10.0-12.5) sec INR (<1.2) Sodium 138 (137-145) mmol/L Potassium 4.4 (3.5-5.1) mmol/L Chloride 106 (98-107) mmol/L Carbon Dioxide 28 (22-30) mmol/L Anion Gap 4 mmol/L BUN 13 (9-20) mg/dL Creatinine 0.68 (0.66-1.25) mg/dL Est GFR (CKD-EPI)AfAm >90 (>60 ml/min/1.73 sqM) Est GFR (CKD-EPI)NonAf >90 (>60 ml/min/1.73 sqM) Glucose 110 H (74-99) mg/dL Plasma Lactic Acid Juan 1.7 (0.7-2.0) mmol/L Calcium 9.2 (8.4-10.2) mg/dL Magnesium (1.6-2.3) mg/dL Total Bilirubin 0.9 (0.2-1.3) mg/dL AST 343 H (17-59) U/L ALT 375 H (4-49) U/L Alkaline Phosphatase 113 (38-126) U/L Creatine Kinase (55-170) U/L Total Protein 6.4 (6.3-8.2) g/dL Albumin 3.8 (3.5-5.0) g/dL Urine Color Urine Appearance (Clear) Urine pH (5.0-8.0) Ur Specific [place] (1.001-1.035) Urine Protein (Negative) Urine Glucose (UA) (Negative) Urine Ketones (Negative) Urine Blood (Negative) Urine Nitrite (Negative) Urine Bilirubin (Negative) Urine Urobilinogen (<2.0) mg/dL Ur Leukocyte Esterase (Negative) Urine WBC (0-5) /hpf Ur Squamous Epith Cells (0-4) /hpf Hyaline Casts (0-2) /lpf Urine Mucus (None) /hpf Salicylates mg/dL Urine Opiates Screen (NotDetected) Ur Oxycodone Screen (NotDetected) Urine Methadone Screen (NotDetected) Acetaminophen ug/mL Ur Barbiturates Screen (NotDetected) U Tricyclic Antidepress (NotDetected) Ur Phencyclidine Scrn (NotDetected) Ur Amphetamines Screen (NotDetected) U Methamphetamines Scrn (NotDetected) U Benzodiazepines Scrn (NotDetected) Urine Cocaine Screen (NotDetected) U Marijuana (THC) Screen (NotDetected) Serum Alcohol mg/dL Critical Care Time Critical Care Time: Yes Total Critical Care Time: 32 Disposition Clinical Impression: Acetaminophen overdose, Intentional overdose, Suicidal overdose, Transaminitis, Hypokalemia, Hypocalcemia Disposition: ADMITTED IP TO THIS [facility] Condition: Serious Referrals: Wander Meyers [Primary Care Provider] - 1-2 days
--- NOTE | 2023-11-10 17:29 | P.CONS ---
History of Present Illness - Reason for Consult Consult date: 11/10/23 Transaminitis, Tylenol overdose Requesting physician: Dennis Carlson - Chief Complaint Suicide attempt with intentional overdose - History of Present Illness This is a 30-year-old male who had presented to the emergency department apparently complaining of suicidal attempt by overdosing on Tylenol and oxycodone. Patient has a history of depression and previous suicide attempt. Patient reports taking 14 extra strength Tylenol and 10 oxycodone 5 mg tablets. He currently denies any abdominal pain, he states that he has vomited several times. Currently denies any shortness of breath, chest pain, fevers or chills. Patient denies any alcohol use or abuse. No history of underlying liver disease. Patient's lab showed elevated liver enzymes and gastroenterology was consulted. Acetylcysteine 11,450 mg p.o. was initiated. Magnesium and potassium replaced. Admitting labs WBC 8.0 hemoglobin 14 hematocrit 42 platelet count 208,000 INR 1.0 sodium 140 potassium 3.2 BUN 13 creatinine 0.6 glucose 123 magnesium 1.7 total bilirubin 0.8 AST 467 ALT 331 alkaline phosphatase 90 Review of Systems REVIEW OF SYSTEMS: CARDIOPULMONARY: No chest pain or shortness of breath. Gastrointestinal: No abdominal pain. Patient had nausea and vomiting.. No hematemesis, coffee-ground emesis. No rectal bleeding, or melena. GENITOURINARY: No dysuria or hematuria. MUSCULOSKELETAL: Reports normal range of motion., Joint pain. SKIN: No rashes. No jaundice. ENDOCRINE: No chills, fevers. No excessive weight gain or loss. No polydipsia or polyuria. PSYCHIATRIC: Depression. Suicide attempt with intentional overdose. NEUROLOGY: No change in mental status. Denies dizziness, headache. ENT: Vision unremarkable. CONSTITUTIONAL: No recent weight loss. No fever, chills, night sweats. Past Medical History Past Medical History: GERD/Reflux Additional Past Medical History / Comment(s): GALLBLADDER DISORDER History of Any Multi-Drug Resistant Organisms: None Reported Past Surgical History: No Surgical Hx Reported Past Anesthesia/Blood Transfusion Reactions: No Reported Reaction Past Psychological History: No Psychological Hx Reported Smoking Status: Never smoker Past Alcohol Use History: None Reported Past Drug Use History: None Reported - Past Family History Mother Family Medical History: No Reported History Medications and Allergies Home Medications Medication Instructions Recorded Confirmed Type No Known Home Medications 11/10/23 11/10/23 History Allergies Allergy/AdvReac Type Severity Reaction Status Date / Time No Known Allergies Allergy Verified 11/10/23 10:43 Physical Exam Vitals: Vital Signs Temp Pulse Resp BP Pulse Ox 11/10/23 10:16 74 18 183/80 96 11/10/23 07:17 98.7 F 73 20 135/83 98 Intake and Output 11/09/23 11/10/23 11/10/23 22:59 06:59 14:59 Other: Weight 81.647 kg General appearance: The patient is alert, oriented, appears in no acute distress. HET: Head is normocephalic and atraumatic. Conjunctiva pink. Sclera anicteric. Neck: Supple without lymphadenopathy. Trachea midline. Heart: Regular. Lungs: Equal expansion, normal respiratory effort. Abdomen: Soft, nontender, nondistended. Skin: No rashes. No jaundice. Extremities: Normal skin color and turgor. No pedal edema. Neurological: No focal deficits. Alert and oriented x3. Results CBC & Chem 7: 11/10/23 07:32 11/10/23 14:16 Labs: Abnormal Lab Results - Last 24 Hours (Table) 11/10/23 11/10/23 11/10/23 Range/Units 07:32 10:15 10:15 Potassium 3.2 L (3.5-5.1) mmol/L Chloride 110 H (98-107) mmol/L Glucose 123 H (74-99) mg/dL Calcium 8.0 L (8.4-10.2) mg/dL AST 467 H (17-59) U/L ALT 331 H (4-49) U/L Total Protein 5.9 L (6.3-8.2) g/dL Albumin 3.4 L (3.5-5.0) g/dL Ur Specific [place] 1.049 H (1.001-1.035) Urine Protein 1+ H (Negative) Urine Glucose (UA) 1+ H (Negative) Urine Bilirubin 1+ H (Negative) Hyaline Casts 4 H (0-2) /lpf Urine Mucus Few H (None) /hpf Urine Opiates Screen Detected H (NotDetected) Ur Oxycodone Screen Detected H (NotDetected) U Benzodiazepines Scrn Detected H (NotDetected) Assessment and Plan (1) Acetaminophen overdose Narrative/Plan: 28-year-old with a history of depression and prior suicidal attempt presented to the emergency department after intentionally overdosing with acetaminophen and oxycodone. Patient took reportedly 14 extra strength Tylenol equivalent to 7 g of acetaminophen and states he took oxycodone 10 of the 5 mg tablets which is approximately 3000 g of acetaminophen. Patient's salicylates less than 1.0 acetaminophen 28.9. Presenting with elevated liver enzymes with no prior history of underlying liver disease and no history of alcoholism. Patient will need to be monitored extremely close and continue with a acetylcysteine 5700 mg p.o. every 4 hours until acetaminophen level normalized. Close monitoring of liver enzymes and INR with labs every 4 hours. Further recommendations forthcoming based on clinical course. Current Visit: Yes Status: Acute Code(s): T39.1X1A - POISONING BY 4- AMINOPHENOL DERIVATIVES, ACCIDENTAL, INIT SNOMED Code(s): 938230110 (2) Transaminitis Current Visit: Yes Status: Acute Code(s): R74.01 - ELEVATION OF LEVELS OF LIVER TRANSAMINASE LEVELS SNOMED Code(s): 216259547 (3) Intentional overdose Current Visit: Yes Status: Acute Code(s): T50.902A - POISONING BY UNSP DRUG /MEDS/BIOL SUBST, SELF-HARM, INIT SNOMED Code(s): 3519973380 (4) Suicidal overdose Current Visit: Yes Status: Acute Code(s): T50.902A - POISONING BY UNSP DRUG/MEDS/BIOL SUBST, SELF-HARM, INIT SNOMED Code(s): 83230791 (5) Depression Current Visit: No Status: Acute Code(s): F32.A - DEPRESSION, UNSPECIFIED SNOMED Code(s): 98683034 Plan: 1. Continue symptomatic and supportive care 2. Continue acetylcysteine as ordered 3. CMP, INR every 4 hours 4. Acetaminophen levels every 4 hours 5. Patient may have regular diet 6. Antiemetics as needed 7. Potassium per protocol 8. Avoid hepatotoxic medications 9. Psychiatry following continue with their recommendations 10. Rest of medical management per primary medical team Thank you for this consultation, we will continue to follow closely. Dr. Jodie Cabral I agree with the dictator's note, documented as a scribe by Yeimy Ramírez.
[2023-11-10 18:06] LABS: Prothrombin Time 11.3 sec (10.0-12.5)
[2023-11-10 18:11] LABS: ALT 352 U/L (4-49); AST 258 U/L (17-59); Acetaminophen <10.0 ug/mL; African American GFR (CKD) >90 (>60 ml/min/1.73 sqM); Albumin 3.7 g/dL (3.5-5.0); Alkaline Phosphatase 107 U/L (38-126); Anion Gap 6 mmol/L; Blood Urea Nitrogen 12 mg/dL (9-20); Calcium 8.8 mg/dL (8.4-10.2); Carbon Dioxide 27 mmol/L (22-30); Chloride 104 mmol/L (98-107); Glucose 104 mg/dL (74-99); Non-African American GFR(CKD) >90 (>60 ml/min/1.73 sqM); Potassium 4.3 mmol/L (3.5-5.1); Sodium 137 mmol/L (137-145); Total Bilirubin 0.8 mg/dL (0.2-1.3); Total Protein 6.2 g/dL (6.3-8.2)
[2023-11-10 22:02] LABS: Chloride 105 mmol/L (98-107)
[2023-11-10 22:05] LABS: ALT 310 U/L (4-49); AST 189 U/L (17-59); Acetaminophen <10.0 ug/mL; African American GFR (CKD) >90 (>60 ml/min/1.73 sqM); Albumin 3.5 g/dL (3.5-5.0); Alkaline Phosphatase 100 U/L (38-126); Anion Gap 4 mmol/L; Blood Urea Nitrogen 10 mg/dL (9-20); Calcium 8.9 mg/dL (8.4-10.2); Carbon Dioxide 28 mmol/L (22-30); Glucose 101 mg/dL (74-99); Non-African American GFR(CKD) >90 (>60 ml/min/1.73 sqM); Sodium 137 mmol/L (137-145); Total Bilirubin 0.8 mg/dL (0.2-1.3); Total Protein 6.1 g/dL (6.3-8.2)
[2023-11-10 22:09] LABS: INR 1.1 (<1.2); Prothrombin Time 11.9 sec (10.0-12.5)
--- NOTE | 2023-11-10 23:30 | HP ---
HISTORY AND PHYSICAL CHIEF COMPLAINT: Tylenol overdose. HISTORY OF PRESENT ILLNESS: This is a 28-year-old gentleman with a past medical history of GERD, gallbladder disorder, apparently took 14 tablets of 500 mg Tylenol at approximately 11:40 p.m. last night in an attempt to self-harm. The patient also took 10 tablets of 5 mg oxycodone as well. The patient presented with intentional overdosage and the Tylenol level was found to be elevated at 28.9 and Poison Control was contacted and N-acetylcysteine was given. Gastroenterology was consulted. The AST and ALT were 467 and 331, which are slightly improved to 343 and 375 at this time. INR is normal. There is no history of any fever, rigors, or chills. No chest pain or palpitation at this time. PAST MEDICAL HISTORY: GERD, gallbladder disorder. Rest of the history and rest of the chart is also reviewed. HOME MEDICATIONS: None. ALLERGIES: None. FAMILY HISTORY: No history of heart disease or strokes in the family. SOCIAL HISTORY: No history of smoking or alcohol. REVIEW OF SYSTEMS: A 14-point review is negative except as mentioned earlier. PHYSICAL EXAMINATION: VITAL SIGNS: Pulse is 91, blood pressure 134/76, and respirations 16. HEENT: Conjunctivae normal. NECK: No jugular venous distention. RESPIRATIONS: Diminished at the bases. ABDOMEN: Soft, nontender. No masses. LEGS: No edema, no swelling. NERVOUS SYSTEM: No focal deficits. SKIN: No rash or bleeding. No petechiae. LABORATORY DATA: Sodium 140, potassium 3, rest of the labs are noted. ASSESSMENT: 1. Status post intentional Tylenol overdose. 2. Elevated AST, ALT secondary to Tylenol hepatotoxicity. 3. Elevated random glucose. 4. History of GERD. 5. History of gallbladder disorder. 6. Suicidal ideation with possible depression. RECOMMENDATIONS AND DISCUSSION: This 28-year-old gentleman presented with multiple complex medical issues, we will monitor the patient closely. Mucomyst has been ordered with 17 doses per Poison Control. I would recommend to repeat labs, GI evaluation. Monitor PT/INR closely. Prognosis guarded. Psychiatric evaluation. Further recommendations to follow. See orders for details. MMODL / IJN: [id number] /
[2023-11-11 02:37] LABS: ALT 291 U/L (4-49); AST 146 U/L (17-59); Acetaminophen <10.0 ug/mL; African American GFR (CKD) >90 (>60 ml/min/1.73 sqM); Albumin 3.5 g/dL (3.5-5.0); Alkaline Phosphatase 102 U/L (38-126); Anion Gap 4 mmol/L; Blood Urea Nitrogen 10 mg/dL (9-20); Calcium 8.9 mg/dL (8.4-10.2); Carbon Dioxide 27 mmol/L (22-30); Chloride 107 mmol/L (98-107); Glucose 100 mg/dL (74-99); Non-African American GFR(CKD) >90 (>60 ml/min/1.73 sqM); Potassium 3.9 mmol/L (3.5-5.1); Sodium 138 mmol/L (137-145); Total Bilirubin 0.9 mg/dL (0.2-1.3)
[2023-11-11 02:45] LABS: Prothrombin Time 11.3 sec (10.0-12.5)
[2023-11-11 06:51] LABS: INR 1.1 (<1.2)
[2023-11-11 06:59] LABS: ALT 282 U/L (4-49); Acetaminophen <10.0 ug/mL; African American GFR (CKD) >90 (>60 ml/min/1.73 sqM); Anion Gap 11 mmol/L; Blood Urea Nitrogen 9 mg/dL (9-20); Calcium 8.1 mg/dL (8.4-10.2); Carbon Dioxide 19 mmol/L (22-30); Chloride 108 mmol/L (98-107); Glucose 96 mg/dL (74-99); Non-African American GFR(CKD) >90 (>60 ml/min/1.73 sqM); Sodium 138 mmol/L (137-145); Total Bilirubin 1.1 mg/dL (0.2-1.3)
[2023-11-11 07:03] LABS: AST 133 U/L (17-59); Albumin 3.6 g/dL (3.5-5.0); Alkaline Phosphatase 110 U/L (38-126); Potassium 4.6 mmol/L (3.5-5.1); Total Protein 6.3 g/dL (6.3-8.2)
[2023-11-11] MEDS: PANTOPRAZOLE 40 MG/10 ML VIAL IV SCH (08:28)
[2023-11-11 11:16] LABS: Basophils % (A) 1 %; Eosinophils # (A) 0.2 k/uL (0-0.7); Eosinophils % (A) 3 %; HCT 43.4 % (39.0-53.0); HGB 15.4 gm/dL (13.0-17.5); Lymphocytes # (A) 1.1 k/uL (1.0-4.8); Lymphocytes % (A) 18 %; MCH 32.3 pg (25.0-35.0); MCHC 35.4 g/dL (31.0-37.0); MCV 91.4 fL (80.0-100.0); Mean Platelet Volume 8.5; Monocytes # (A) 0.4 k/uL (0-1.0); Monocytes % (A) 7 %; Neutrophils % (A) 69 %; Platelet Count 243 k/uL (150-450); RBC 4.75 m/uL (4.30-5.90); RDW 13.3 % (11.5-15.5); WBC 5.9 k/uL (3.8-10.6)
[2023-11-11 11:33] LABS: ALT 278 U/L (4-49); AST 107 U/L (17-59); Acetaminophen <10.0 ug/mL; African American GFR (CKD) >90 (>60 ml/min/1.73 sqM); Albumin 3.9 g/dL (3.5-5.0); Alkaline Phosphatase 92 U/L (38-126); Anion Gap 8 mmol/L; Blood Urea Nitrogen 9 mg/dL (9-20); Calcium 9.2 mg/dL (8.4-10.2); Carbon Dioxide 25 mmol/L (22-30); Chloride 107 mmol/L (98-107); Glucose 110 mg/dL (74-99); Non-African American GFR(CKD) >90 (>60 ml/min/1.73 sqM); Potassium 4.1 mmol/L (3.5-5.1); Sodium 140 mmol/L (137-145); Total Bilirubin 0.8 mg/dL (0.2-1.3); Total Protein 6.7 g/dL (6.3-8.2)
--- NOTE | 2023-11-11 14:30 | P.CN ---
Psychiatric Consult - . Consult date: 11/11/23 Consult:: 11/11/23 13:18 IDENTIFYING DATA: This patient is a 28-year-old male, he currently lives alone in a duplex. 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 REASON FOR REFERRAL: Psychiatry was consulted for "a suicide attempt intentional overdose" HISTORY OF PRESENT ILLNESS: The patient presented to the hospital after consuming 10 tablets of oxycodone 14 tablets of Tylenol last night. Patient apparently has a history of depression and anxiety. UDS was positive for opiates oxycodone and benzodiazepines. LFTs were significantly elevated. Patient was seen at the bedside agreeable to speak to conventional underwriter. States that "I did something stupid" and claims that he tried to kill himself. He states that he attempted to overdose on "all the pills I can find". States that he went to bed afterwards and called his family after that to bring him to the hospital. He states that he has been dealing with significant changes in his life that are causing him distress. He mentioned that his brother recently moved out of the apartment and he is feeling a lot more lonely. Claims that his best friend also left at work and he feels more isolated. He claims that he does not do well with "all the changes around me". Claims that he is not willing to change very easily, claims that he is also dealing with significant problems with finances and bills. Claims that his mother and father both . Claims that he is feeling fairly depressed, denying any anxiety at this time. Claims that he is not taking any psychiatric medications or does not have any follow-up, claims that his sleep and appetite have both been on and off lately. At this time patient denies any suicidal or homical ideations, intent or plan. Patient denies any auditory, visual hallucinations and denies any paranoia or delusions. Patients admits to using no recreational drugs or cigarettes. PAST PSYCHIATRIC HISTORY: Patient has a a history of depression. Patient denies being on any psychiatric medications. He claims that he has never been psychiatrically hospitalized in the past. Patient denies any psychiatric outpatient follow-up. He states that he attempted to overdose about 2 years ago on pills. Past Medical History: GERD/Reflux Additional Past Medical History / Comment(s): GALLBLADDER DISORDER History of Any Multi-Drug Resistant Organisms: None Reported Past Surgical History: No Surgical Hx Reported Past Anesthesia/Blood Transfusion Reactions: No Reported Reaction Past Psychological History: No Psychological Hx Reported Smoking Status: Never smoker Past Alcohol Use History: None Reported Past Drug Use History: None Reported ALLERGIES: as per EMR. CHEMICAL DEPENDENCY HISTORY: as per HPI. FAMILY PSYCHIATRIC/SUBSTANCE USE HISTORY: Denies SOCIAL HISTORY: Patient was born and raised in [facility], claims that he completed up to the 10th grade in school. 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 MENTAL STATUS EXAM: General Appearance: Patient appears to be thin, wearing glasses, stated age is alert, pleasant, and cooperative. Patient appears to have fair hygiene and grooming wearing hospital gown with poor eye contact. Behavior: Patient is calmly lying in bed without any agitated behavior. Speech: Patient's speech is fluent and nonpressured. [place] Mood/Affect: Patient reports their mood is "depressed", affect is congruent and constricted Suicidality/Homicidality: Patient denies having any suicidal or homicidal ideation intent or plan. Perceptions: Patient denies any visual hallucinations and denies any auditory hallucinations Though content/process: There is no evidence of any delusional thought content and thought process is linear and goal-directed. Rambles at times Memory and concentration: AOX3, grossly intact for the purposes of this session. Can spell "WORLD" backwards Judgment and insight: Poor IMPRESSIONS: Suicide attempt by overdose of medications Major depressive disorder, without psychotic features PLAN: -At this time patient DOES meet criteria for inpatient psychiatric admission. -Would recommend the following medication changes/additions: Will hold off on antidepressant medications until patient is medically cleared and admitted to the mental health unit. -Continue 1:1 sitter for safety -Cannot leave AMA at this time. Patient will need a petition and certification if attempting to leave AMA. -When medically stable, patient is eligible for transfer to a psych bed when available. -Communicated plan to patient's nurse -Psychiatry will sign off at this time -Please contact with any questions. 11/11/23 14:25
--- NOTE | 2023-11-11 15:00 | P.PN ---
Subjective Progress Note Date: 11/11/23 Principal diagnosis: Tylenol overdose, suicide attempt This is a 30-year-old male who had presented to the emergency department apparently complaining of suicidal attempt by overdosing on Tylenol and oxycodone. Patient has a history of depression and previous suicide attempt. Patient reports taking 14 extra strength Tylenol and 10 oxycodone 5 mg tablets about 11:00 yesterday evening. He currently denies any abdominal pain, he states that he has vomited several times. Currently denies any shortness of breath, chest pain, fevers or chills. Patient denies any alcohol use or abuse. No history of underlying liver disease. Patient's lab showed elevated liver enzymes and gastroenterology was consulted. Acetylcysteine 11,450 mg p.o. was initiated. Magnesium and potassium replaced. Admitting labs WBC 8.0 hemoglobin 14 hematocrit 42 platelet count 208,000 INR 1.0 sodium 140 potassium 3.2 BUN 13 creatinine 0.6 glucose 123 magnesium 1.7 total bilirubin 0.8 AST 467 ALT 331 alkaline phosphatase 90 11/11/2023 Patient seen and examined today as a follow-up. He is still in the emergency department waiting bed. He remains on Mucomyst per protocol. Liver enzymes have been stable and trending down a little bit this morning. INR as well has been stable. He denies any abdominal pain, nausea or vomiting. This morning's labs INR 1.1 sodium 138 potassium 4.6 BUN 9 creatinine 0.5 total bilirubin 1.1 AST 133 ALT 282 alkaline phosphatase 110 acetaminophen less than 10 Objective - Vital Signs Vital signs: Vital Signs Temp 98.4 F 11/10/23 15:23 Pulse 98 11/11/23 06:00 Resp 15 11/11/23 06:00 BP 144/86 11/11/23 06:00 Pulse Ox 95 11/11/23 06:00 FiO2 Intake & Output 11/10/23 11/11/23 11/11/23 18:59 06:59 18:59 Weight 81.647 kg - Exam General appearance: The patient is alert, oriented, appears in no acute distress. HET: Head is normocephalic and atraumatic. Conjunctiva pink. Sclera anicteric. Neck: Supple without lymphadenopathy. Abdomen: Soft, nontender, nondistended with bowel sounds. No guarding or rigidity. Extremities: Normal skin color and turgor. No pedal edema Skin: No rashes, no jaundice Neurological: No focal deficits. Alert and oriented. - Labs CBC & Chem 7: 11/11/23 10:51 11/11/23 10:51 Labs: Abnormal Lab Results - Last 24 Hours (Table) 11/10/23 11/10/23 11/10/23 Range/Units 07:32 10:15 10:15 Potassium 3.2 L (3.5-5.1) mmol/L Chloride 110 H (98-107) mmol/L Carbon Dioxide (22-30) mmol/L Creatinine (0.66-1.25) mg/dL Glucose 123 H (74-99) mg/dL Calcium 8.0 L (8.4-10.2) mg/dL AST 467 H (17-59) U/L ALT 331 H (4-49) U/L Total Protein 5.9 L (6.3-8.2) g/dL Albumin 3.4 L (3.5-5.0) g/dL Ur Specific [place] 1.049 H (1.001-1.035) Urine Protein 1+ H (Negative) Urine Glucose (UA) 1+ H (Negative) Urine Bilirubin 1+ H (Negative) Hyaline Casts 4 H (0-2) /lpf Urine Mucus Few H (None) /hpf Urine Opiates Screen Detected H (NotDetected) Ur Oxycodone Screen Detected H (NotDetected) U Benzodiazepines Scrn Detected H (NotDetected) 11/10/23 11/10/23 11/10/23 Range/Units 14:16 17:51 21:42 Potassium (3.5-5.1) mmol/L Chloride (98-107) mmol/L Carbon Dioxide (22-30) mmol/L Creatinine 0.64 L 0.61 L (0.66-1.25) mg/dL Glucose 110 H 104 H 101 H (74-99) mg/dL Calcium (8.4-10.2) mg/dL AST 343 H 258 H 189 H (17-59) U/L ALT 375 H 352 H 310 H (4-49) U/L Total Protein 6.2 L 6.1 L (6.3-8.2) g/dL Albumin (3.5-5.0) g/dL Ur Specific [place] (1.001-1.035) Urine Protein (Negative) Urine Glucose (UA) (Negative) Urine Bilirubin (Negative) Hyaline Casts (0-2) /lpf Urine Mucus (None) /hpf Urine Opiates Screen (NotDetected) Ur Oxycodone Screen (NotDetected) U Benzodiazepines Scrn (NotDetected) 11/11/23 11/11/23 Range/Units 02:13 06:25 Potassium (3.5-5.1) mmol/L Chloride 108 H (98-107) mmol/L Carbon Dioxide 19 L (22-30) mmol/L Creatinine 0.55 L 0.54 L (0.66-1.25) mg/dL Glucose 100 H (74-99) mg/dL Calcium 8.1 L (8.4-10.2) mg/dL AST 146 H 133 H (17-59) U/L ALT 291 H 282 H (4-49) U/L Total Protein 6.0 L (6.3-8.2) g/dL Albumin (3.5-5.0) g/dL Ur Specific [place] (1.001-1.035) Urine Protein (Negative) Urine Glucose (UA) (Negative) Urine Bilirubin (Negative) Hyaline Casts (0-2) /lpf Urine Mucus (None) /hpf Urine Opiates Screen (NotDetected) Ur Oxycodone Screen (NotDetected) U Benzodiazepines Scrn (NotDetected) Assessment and Plan (1) Acetaminophen overdose Narrative/Plan: 28-year-old with a history of depression and prior suicidal attempt presented to the emergency department after intentionally overdosing with acetaminophen and oxycodone. Patient took reportedly 14 extra strength Tylenol equivalent to 7 g of acetaminophen and states he took oxycodone 10 of the 5 mg tablets which is approximately 3000 g of acetaminophen. Patient's salicylates less than 1.0 acetaminophen 28.9. Presenting with elevated liver enzymes with no prior history of underlying liver disease and no history of alcoholism. Patient will need to be monitored extremely close and continue with a acetylcysteine per protocol. Liver enzymes have been closely monitored and are stable as well as INR. Will continue to trend INR and LFTs however we will do them every 12 hour s. Anticipate monitoring for another 24 to 48 hours. Current Visit: Yes Status: Acute Code(s): T39.1X1A - POISONING BY 4- AMINOPHENOL DERIVATIVES, ACCIDENTAL, INIT SNOMED Code(s): 330010135 (2) Transaminitis Current Visit: Yes Status: Acute Code(s): R74.01 - ELEVATION OF LEVELS OF LIVER TRANSAMINASE LEVELS SNOMED Code(s): 673181101 (3) Intentional overdose Current Visit: Yes Status: Acute Code(s): T50.902A - POISONING BY UNSP DRUG/MEDS/BIOL SUBST, SELF-HARM, INIT SNOMED Code(s): 3876558806 (4) Suicidal overdose Current Visit: Yes Status: Acute Code(s): T50.902A - POISONING BY UNSP DRUG/MEDS/BIOL SUBST, SELF-HARM, INIT SNOMED Code(s): 03176631 (5) Depression Current Visit: No Status: Acute Code(s): F32.A - DEPRESSION, UNSPECIFIED SNOMED Code(s): 95151128 Plan: 1. Continue symptomatic and supportive care 2. Continue acetylcysteine per protocol 3. CMP, INR every 12 hours for another 24 to 48 hours 4. Acetaminophen levels every 12 hours 5. Patient may have regular diet 6. Antiemetics as needed 7. Potassium per protocol 8. Avoid hepatotoxic medications 9. Psychiatry following continue with their recommendations 10. Rest of medical management per primary medical team Thank you for this consultation, we will continue to follow closely. Dr. Jodie Cabral I agree with the dictator's note, documented as a scribe by Yeimy Ramírez.
[2023-11-11 15:10] LABS: INR 1.1 (<1.2); Prothrombin Time 11.7 sec (10.0-12.5)
[2023-11-11 18:27] LABS: ALT 238 U/L (4-49); AST 75 U/L (17-59); Acetaminophen <10.0 ug/mL; African American GFR (CKD) >90 (>60 ml/min/1.73 sqM); Albumin 3.8 g/dL (3.5-5.0); Alkaline Phosphatase 90 U/L (38-126); Anion Gap 5 mmol/L; Blood Urea Nitrogen 8 mg/dL (9-20); Calcium 9.1 mg/dL (8.4-10.2); Carbon Dioxide 28 mmol/L (22-30); Chloride 106 mmol/L (98-107); Glucose 119 mg/dL (74-99); INR 1.1 (<1.2); Non-African American GFR(CKD) >90 (>60 ml/min/1.73 sqM); Potassium 3.7 mmol/L (3.5-5.1); Prothrombin Time 11.8 sec (10.0-12.5); Sodium 139 mmol/L (137-145); Total Bilirubin 0.6 mg/dL (0.2-1.3); Total Protein 6.4 g/dL (6.3-8.2)
--- NOTE | 2023-11-12 03:10 | PN ---
PROGRESS NOTE DATE OF SERVICE: 11/11/2023 SUBJECTIVE: This 28-year-old gentleman admitted with Tylenol overdose, he is being closely monitored. LFTs are showing a diminishing trend. No chest pain, no palpitations. The patient is being given Mucomyst per Poison Control recommendations. OBJECTIVE: VITAL SIGNS: Pulse 82, blood pressure 140/67, respirations 18. CHEST: Clear to auscultation. CARDIOVASCULAR: S1, S2. ABDOMEN: Soft, nontender. LABORATORY DATA: Reviewed. AST is 107 and ALT is 278. ASSESSMENT: 1. Status post intentional Tylenol overdose. 2. Elevated AST, ALT secondary to Tylenol hepatotoxicity. 3. Elevated random glucose. 4. History of GERD. 5. History of gallbladder disorder. 6. Suicidal ideation with possible depression. RECOMMENDATIONS: Recommended to continue current management, continue symptomatic treatment. Continue the Mucomyst and repeat labs. Monitor PT/INR closely, gastroenterology, and psychiatric evaluations. Guarded prognosis because of multiple complex medical issues. Further recommendations to follow. MMODL / IJN: [id number] /
[2023-11-12 08:20] LABS: ALT 222 U/L (4-49); AST 82 U/L (17-59); Acetaminophen <10.0 ug/mL; African American GFR (CKD) >90 (>60 ml/min/1.73 sqM); Albumin 3.6 g/dL (3.5-5.0); Albumin/Globulin Ratio 1.4; Alkaline Phosphatase 92 U/L (38-126); Anion Gap 5 mmol/L; Blood Urea Nitrogen 11 mg/dL (9-20); Calcium 9.1 mg/dL (8.4-10.2); Carbon Dioxide 27 mmol/L (22-30); Chloride 107 mmol/L (98-107); Globulin 2.5 g/dL; Glucose 90 mg/dL (74-99); Non-African American GFR(CKD) >90 (>60 ml/min/1.73 sqM); Potassium 3.9 mmol/L (3.5-5.1); Sodium 139 mmol/L (137-145); Total Bilirubin 0.8 mg/dL (0.2-1.3); Total Protein 6.1 g/dL (6.3-8.2)
[2023-11-12 09:18] VITALS: RESP 16
[2023-11-12 10:15] LABS: Basophils # (A) 0.04 X 10*3/uL (0.00-0.10); Basophils % (A) 0.7 %; Eosinophils # (A) 0.24 X 10*3/uL (0.04-0.35); Eosinophils % (A) 4.2 %; HCT 42.8 % (39.6-50.0); HGB 14.5 g/dL (13.0-17.0); Lymphocytes # (A) 1.37 X 10*3/uL (0.90-5.00); MCH 30.8 pg (27.0-32.0); MCHC 33.9 g/dL (32.0-37.0); MCV 90.9 FL (80.0-97.0); Mean Platelet Volume 10.7 FL (9.5-12.2); Monocytes # (A) 0.53 X 10*3/uL (0.20-1.00); Monocytes % (A) 9.3 %; NRBC Per 100 WBC 0 X 10*3/uL (0.00-0.01); Neutrophils # (A) 3.51 X 10*3/uL (1.80-7.70); Neutrophils % (A) 61.4 %; Platelet Count 238 X 10*3/uL (140-440); RBC 4.71 X 10*6/uL (4.40-5.60); RDW 12.7 % (11.5-14.5); WBC 5.71 X 10*3/uL (4.50-10.00)
[2023-11-12 11:42] LABS: INR 1.05 sec (0.93-1.11); Prothrombin Time 11.3 sec (9.9-11.9)
[2023-11-12 13:09] VITALS: BP 135/70; PULSE 74; TEMP 98.2
--- NOTE | 2023-11-12 14:39 | P.PN ---
Subjective Progress Note Date: 11/12/23 Principal diagnosis: Tylenol overdose, suicide attempt This is a 30-year-old male who had presented to the emergency department apparently complaining of suicidal attempt by overdosing on Tylenol and oxycodone. Patient has a history of depression and previous suicide attempt. Patient reports taking 14 extra strength Tylenol and 10 oxycodone 5 mg tablets about 11:00 yesterday evening. He currently denies any abdominal pain, he states that he has vomited several times. Currently denies any shortness of breath, chest pain, fevers or chills. Patient denies any alcohol use or abuse. No history of underlying liver disease. Patient's lab showed elevated liver enzymes and gastroenterology was consulted. Acetylcysteine 11,450 mg p.o. was initiated. Magnesium and potassium replaced. Admitting labs WBC 8.0 hemoglobin 14 hematocrit 42 platelet count 208,000 INR 1.0 sodium 140 potassium 3.2 BUN 13 creatinine 0.6 glucose 123 magnesium 1.7 total bilirubin 0.8 AST 467 ALT 331 alkaline phosphatase 90 11/11/2023 Patient seen and examined today as a follow-up. He is still in the emergency department waiting bed. He remains on Mucomyst per protocol. Liver enzymes have been stable and trending down a little bit this morning. INR as well has been stable. He denies any abdominal pain, nausea or vomiting. This morning's labs INR 1.1 sodium 138 potassium 4.6 BUN 9 creatinine 0.5 total bilirubin 1.1 AST 133 ALT 282 alkaline phosphatase 110 acetaminophen less than 10 11/12/2023 Patient is seen and examined today as a follow-up. He denies any abdominal pain, nausea or vomiting. He has a sitter at the bedside. His AST and ALT continue to improve. INR has been stable and acetaminophen level is less than 10. Mucomyst has been discontinued. Objective - Vital Signs Vital signs: Vital Signs Temp 98.0 F 11/12/23 08:07 Pulse 76 11/12/23 08:07 Resp 16 11/12/23 08:07 BP 127/77 11/12/23 08:07 Pulse Ox 98 11/12/23 08:07 FiO2 Intake & Output 11/11/23 11/12/23 11/12/23 18:59 06:59 18:59 Intake Total 3185 Balance 1755 Weight 87.5 kg Intake: Intake, IV Titration 675 Amount Sodium Chloride 0.9% 1, 675 000 ml @ 75 mls/hr IV . [id number] [facility] Rx#:[id number] Oral 1080 Other: Voiding Method Toilet # Voids 1 - Exam General appearance: The patient is alert, oriented, appears in no acute distress. HET: Head is normocephalic and atraumatic. Conjunctiva pink. Sclera anicteric. Neck: Supple without lymphadenopathy. Abdomen: Soft, nontender, nondistended with bowel sounds. No guarding or rigidity. Extremities: Normal skin color and turgor. No pedal edema Skin: No rashes, no jaundice Neurological: No focal deficits. Alert and oriented. - Labs CBC & Chem 7: 11/12/23 07:38 11/12/23 07:38 Labs: Abnormal Lab Results - Last 24 Hours (Table) 11/11/23 11/11/23 11/12/23 Range/Units 10:51 17:59 07:38 BUN 8 L (9-20) mg/dL Creatinine 0.54 L 0.58 L 0.65 L (0.66-1.25) mg/dL Glucose 110 H 119 H (74-99) mg/dL AST 107 H 75 H 82 H (17-59) U/L ALT 278 H 238 H 222 H (4-49) U/L Total Protein 6.1 L (6.3-8.2) g/dL Assessment and Plan (1) Acetaminophen overdose Narrative/Plan: 28-year-old with a history of depression and prior suicidal attempt presented to the emergency department after intentionally overdosing with acetaminophen and oxycodone. Patient took reportedly 14 extra strength Tylenol equivalent to 7 g of acetaminophen and states he took oxycodone 10 of the 5 mg tablets which is approximately 3000 g of acetaminophen. Patient's salicylates less than 1.0 acetaminophen 28.9. Presenting with elevated liver enzymes with no prior history of underlying liver disease and no history of alcoholism. Patient will need to be monitored extremely close and continue with a acetylcysteine per protocol. Liver enzymes have been closely monitored and are stable as well as INR. Will continue to trend INR and LFTs however we will do them every 12 hours. Anticipate monitoring for another 24 to 48 hours. Current Visit: Yes Status: Acute Code(s): T39.1X1A - POISONING BY 4- AMINOPHENOL DERIVATIVES, ACCIDENTAL, INIT SNOMED Code(s): 269503910 (2) Transaminitis Current Visit: Yes Status: Acute Code(s): R74.01 - ELEVATION OF LEVELS OF LIVER TRANSAMINASE LEVELS SNOMED Code(s): 914197925 (3) Intentional overdose Current Visit: Yes Status: Acute Code(s): T50.902A - POISONING BY UNSP DRUG/MEDS/BIOL SUBST, SELF-HARM, INIT SNOMED Code(s): 7824364095 (4) Suicidal overdose Current Visit: Yes Status: Acute Code(s): T50.902A - POISONING BY UNSP DRUG/MEDS/BIOL SUBST, SELF-HARM, INIT SNOMED Code(s): 27341107 (5) Depression Current Visit: No Status: Acute Code(s): F32.A - DEPRESSION, UNSPECIFIED SNOMED Code(s): 47848337 Plan: 1. Continue symptomatic and supportive care 2. Repeat CMP tomorrow 3. Patient may have regular diet 4. Avoid hepatotoxic medications 5. Psychiatry following continue with their recommendations 6. Patient is stable from a gastroenterology perspective to be transferred to mental health unit 7. Rest of medical management per primary medical team Thank you for this consultation, we will sign off at this time. Dr. Jodie Cabral I agree with the dictator's note, documented as a scribe by Yeimy Ramírez.
--- NOTE | 2023-11-12 15:15 | P.DS ---
Providers Date of admission: 11/10/23 10:12 Expected date of discharge: 11/12/23 Attending physician: Jeramy Mason MD Consults: 11/10/23 09:42 Consult Physician Routine Consulting Provider: Jarrett Suero Consult Reason/Comments: suicide attempt, intentional overdose Do you want consulting provider notified?: Yes 11/10/23 11:39 Consult Physician Routine Consulting Provider: Tessa Cabral Consult Reason/Comments: transaminitis, tylenol overdose Do you want consulting provider notified?: Already Contacted Primary care physician: Wander Meyers Hospital Course: Final diagnosis Status post intentional Tylenol overdose Elevated AST, ALT secondary to Tylenol hepatotoxicity, trending down Elevated random glucose History of GERD History of gallbladder disorder Severe depression with suicidal ideation GI prophylaxis DVT prophylaxis Full code Discharge disposition Patient is being transferred in a stable condition with guarded prognosis to [facility] for further psychiatric evaluation. Patient will follow-up with Dr. Meyers in the outpatient setting upon discharge. Patient is to follow-up with [facility] outpatient as scheduled. Total time taken is greater than 35 minutes. Hospital course This is a 28-year-old male who was recently admitted to the medical floor being followed by poison control status post intentional overdose of taking multiple Tylenol along with oxycodone. Patient was receiving Mucomyst treatment and kidney functions are improved and Tylenol level within normal limits and liver functions are trending down. Recommend follow-up labs in the next few days. Patient has been cleared by poison control. Patient evaluated by psychiatry and meets criteria for inpatient psych and is medically stable for transfer to [facility] for further psychiatric care and evaluation. Currently no reports of chest pain, shortness of breath, or palpitations. Patient is afebrile. No reports of nausea or vomiting and patient is tolerating diet. Patient will be transferred to [facility] here at [facility] for further psychiatric evaluation. Physical exam: Gen: This is a 28-year-old male who is awake, alert and oriented x 3, well- developed, well-nourished HEENT: Head is atraumatic, normocephalic. Pupils equal, round. Sclerae is anicteric. NECK: Supple. No JVD. No lymphadenopathy. No thyromegaly. LUNGS: Clear to auscultation. No wheezes or rhonchi. No intercostal retractions. HEART: Regular rate and rhythm. No murmur. ABDOMEN: Soft. Bowel sounds are present. No masses. No tenderness. EXTREMITIES: No pedal edema. No calf tenderness. NEUROLOGICAL: Patient is awake, alert and oriented x3. Cranial nerves 2 through 12 are grossly intact. Please refer to medication reconciliation sheet for a list of medications. The impression and plan of care has been dictated by Monalisa Escamilla, Nurse Practitioner as directed. Dr. Alfonso MD I have performed a history and examination and MDM of this patient, discussed the same with the dictator, and agree with the dictator's assessment and plan as written ,documented as a scribe. Based on total visit time, I have performed more than 50% of the visit. Patient Condition at Discharge: Stable Plan - Discharge Summary Discharge Rx Participant: Yes New Discharge Prescriptions: No Action No Known Home Medications Discharge Medication List No Known Home Medications 11/10/23 [History] Follow up Appointment(s)/Referral(s): Wander Meyers [Primary Care Provider] - 1-2 days Activity/Diet/Wound Care/Special Instructions: Patient is medically stable for transfer to [facility] for further psychiatric evaluation Follow-up primary care provider on discharge Discharge Disposition: TRANSFER TO PSYCH HOSP/UNIT
[2023-11-12 19:10] LABS: ALT 259 U/L (4-49); AST 128 U/L (17-59); African American GFR (CKD) >90 (>60 ml/min/1.73 sqM); Albumin 3.9 g/dL (3.5-5.0); Albumin/Globulin Ratio 1.5; Alkaline Phosphatase 91 U/L (38-126); Anion Gap 5 mmol/L; Blood Urea Nitrogen 10 mg/dL (9-20); Calcium 9.3 mg/dL (8.4-10.2); Carbon Dioxide 27 mmol/L (22-30); Chloride 106 mmol/L (98-107); Globulin 2.6 g/dL; Glucose 150 mg/dL (74-99); Non-African American GFR(CKD) >90 (>60 ml/min/1.73 sqM); Potassium 3.7 mmol/L (3.5-5.1); Prothrombin Time 10.9 sec (10.0-12.5); Sodium 138 mmol/L (137-145); Total Bilirubin 0.7 mg/dL (0.2-1.3); Total Protein 6.5 g/dL (6.3-8.2)
== END 2023-11-12 18:46 | DRG 918 ==
LOC: EC 07:14 → 3SCARD 10:12 → 5NMEDONC 11-11 20:57 → UNDODISIN 11-12 18:43
PROVIDERS: ADMIT Internal Medicine; ATTEND Internal Medicine
DX: T39.1X2A Poisoning by 4-Aminophenol derivatives, intentional self-harm, initial encounter (principal); T40.2X2A Poisoning by other opioids, intentional self-harm, initial encounter; E83.51 Hypocalcemia; F32.9 Major depressive disorder, single episode, unspecified; K21.9 Gastro-esophageal reflux disease without esophagitis; E87.6 Hypokalemia; E83.42 Hypomagnesemia; F41.9 Anxiety disorder, unspecified; R73.9 Hyperglycemia, unspecified; R74.01 Elevation of levels of liver transaminase levels; Z91.51 Personal history of suicidal behavior; Z63.8 Other specified problems related to primary support group; Z59.89 Other problems related to housing and economic circumstances; Z87.19 Personal history of other diseases of the digestive system
CPT/HCPCS: 36415; 80053; 80143; 80179; 80306; 80320; 81001; 82075; 82550; 83605; 83735; 85025; 85610; 87635; 93005; 96361; 96365; 96366; 96367; 96375; 99291

== ENCOUNTER 2023-11-12 17:12 | Inpatient (IN) | payer OTHER ==
[2023-11-12] MEDS ORDERED: MAG HYDROX/AL HYDROX/SIMETH 355 ML BOTTLE PO PRN (17:22)
[2023-11-12] MEDS ORDERED: IBUPROFEN 600 MG TAB PO PRN (17:22)
[2023-11-12] MEDS ORDERED: MAGNESIUM HYDROXIDE 2,400 MG/30 ML CUP PO PRN (17:22)
[2023-11-12] MEDS ORDERED: HALOPERIDOL LACTATE 5 MG/ML 1 ML VIAL IM PRN (17:54)
[2023-11-12] MEDS ORDERED: LORazepam 2 MG/ML INJ IM PRN (17:54)
[2023-11-12] MEDS ORDERED: LORazepam 1 MG TAB PO PRN (17:54)
[2023-11-12] MEDS ORDERED: haloperidoL 5 MG TAB PO PRN (17:54)
[2023-11-13 11:40] LABS: Basophils # (A) 0.1 k/uL (0-0.2); Basophils % (A) 1 %; Eosinophils # (A) 0.1 k/uL (0-0.7); Eosinophils % (A) 2 %; HCT 46.2 % (39.0-53.0); HGB 15.3 gm/dL (13.0-17.5); Lymphocytes # (A) 1.4 k/uL (1.0-4.8); Lymphocytes % (A) 26 %; MCH 30.5 pg (25.0-35.0); MCHC 33.1 g/dL (31.0-37.0); MCV 92.3 fL (80.0-100.0); Monocytes # (A) 0.3 k/uL (0-1.0); Monocytes % (A) 6 %; Neutrophils # (A) 3.4 k/uL (1.3-7.7); Neutrophils % (A) 63 %; Platelet Count 256 k/uL (150-450); RBC 5.01 m/uL (4.30-5.90); RDW 12.9 % (11.5-15.5); WBC 5.3 k/uL (3.8-10.6)
[2023-11-13 12:07] LABS: ALT 312 U/L (4-49); AST 148 U/L (17-59); African American GFR (CKD) >90 (>60 ml/min/1.73 sqM); Alkaline Phosphatase 95 U/L (38-126); Anion Gap 5 mmol/L; Blood Urea Nitrogen 13 mg/dL (9-20); Calcium 9.6 mg/dL (8.4-10.2); Carbon Dioxide 31 mmol/L (22-30); Chloride 105 mmol/L (98-107); Glucose 90 mg/dL (74-99); Non-African American GFR(CKD) >90 (>60 ml/min/1.73 sqM); Potassium 4.6 mmol/L (3.5-5.1); Sodium 141 mmol/L (137-145); Total Bilirubin 0.7 mg/dL (0.2-1.3); Total Protein 6.8 g/dL (6.3-8.2)
--- NOTE | 2023-11-13 12:26 | P.HP ---
Psychiatric H&P - . H&P Date: 11/13/23 History & Physical: Allergies Allergy/AdvReac Type Severity Reaction Status Date / Time No Known Allergies Allergy Verified 11/13/23 00:01 Vital Signs Temp 98.7 F 11/13/23 06:22 Pulse 94 11/13/23 06:22 Resp 16 11/13/23 06:22 BP 101/55 11/13/23 06:22 Pulse Ox 97 11/12/23 19:00 FiO2 Intake & Output 11/12/23 11/13/23 11/13/23 18:59 06:59 18:59 Weight 87.5 kg 11/13/23 09:04 IDENTIFYING DATA: Patient is a This patient is a 28-year-old male, he currently lives alone in a duplex. 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 HPI: Patient presented to the hospital on 11/09. The patient was initially hospitalized on the medical unit, psychiatry was consulted for intentional overdose. As per consult note, by this insurance writer, "The patient presented to the hospital after consuming 10 tablets of oxycodone 14 tablets of Tylenol last night. Patient apparently has a history of depression and anxiety. UDS was positive for opiates oxycodone and benzodiazepines. LFTs were significantly elevated. Patient was seen at the bedside agreeable to speak to insurance writer. States that "I did something stupid" and claims that he tried to kill himself. He states that he attempted to overdose on "all the pills I can find". States that he went to bed afterwards and called his family after that to bring him to the hospital. He states that he has been dealing with significant changes in his life that are causing him distress. He mentioned that his brother recently moved out of the apartment and he is feeling a lot more lonely. Claims that his best friend also left at work and he feels more isolated. He claims that he does not do well with "all the changes around me". Claims that he is not willing to change very easily, claims that he is also dealing with significant problems with finances and bills. Claims that his mother and father both . Claims that he is feeling fairly depressed, denying any anxiety at this time. Claims that he is not taking any psychiatric medications or does not have any follow-up, claims that his sleep and appetite have both been on and off lately. At this time patient denies any suicidal or homical ideations, intent or plan. Patient denies any auditory, visual hallucinations and denies any paranoia or delusions. Patients admits to using no recreational drugs or cigarettes." Patient transferred to the [facility] last night. Today, the patient states he is good today. He claims to have slept well last night. He is visible on the unit, and interacting with peers appropriately on the unit. he is agreeable to start medications today for depression and anxiety. PAST PSYCHIATRIC HISTORY: Patient has a a history of depression. Patient denies being on any psychiatric medications. He claims that he has been psychiatrically hospitalized once in the past. Patient denies any psychiatric outpatient follow-up. He states that he attempted to overdose about 2 years ago on pills. PMH:As per ER note ALLERGIES: as per EMR CHEMICAL DEPENDENCY HISTORY: as per HPI FAMILY PSYCHIATRIC/SUBSTANCE USE HISTORY: [denies] SOCIAL HISTORY: Patient was born and raised in [place], claims that he completed up to the 10th grade in school. 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 MENTAL STATUS EXAM: General Appearance: Patient appears to be thin, wearing glasses, stated age is alert, pleasant, and cooperative. Patient appears to have fair hygiene and grooming wearing hospital gown with poor eye contact. Behavior: Patient is calmly lying in bed without any agitated behavior. Speech: Patient's speech is fluent and nonpressured. [place] Mood/Affect: Patient reports their mood is "ok", affect is congruent and constricted Suicidality/Homicidality: Patient denies having any suicidal or homicidal ideation intent or plan. Perceptions: Patient denies any visual hallucinations and denies any auditory hallucinations Though content/process: There is no evidence of any delusional thought content and thought process is linear and goal-directed. Memory and concentration: AOX3, grossly intact for the purposes of this session. Can spell "WORLD" backwards Judgment and insight: Poor STRENGTHS/WEAKNESSES: strength is that patient is [resilient]. Weakness is that patient [has poor judgment and is impulsive] INTELLECT: [average] IMPRESSIONS: Suicide attempt by overdose of medications Major depressive disorder, without psychotic features PLAN: -Patient is admitted under [voluntary] status to [facility] for stabilization of psychiatric symptoms and safety. Patient has signed [adult voluntary form and] [medication consent] and is placed in patient's chart. -Medications : Will start patient on Zoloft 25mg po daily for mood/anxiety, and increase to 50mg Thursday. Melatonin 5mg qhs prn for sleep -Ativan [and Haldol] PRN for agitation/aggression -Patient was informed of the risks, benefits and side effects of the medication [and patient verbally consented to taking the medications. ] -Internal Medicine consult to perform medical evaluation and physical. -NRT - non smoker -SW on board for discharge planning. Encourage patient to participate in groups to work on coping skills. 11/13/23 12:14 11/13/23 12:25 11/13/23 12:26
[2023-11-13] MEDS: SERTRALINE 25 MG TAB PO ONE (12:43)
[2023-11-13] MEDS: MELATONIN 5 MG TABLET PO SCH (21:51)
--- NOTE | 2023-11-14 05:19 | P.MDCNMH ---
History of Present Illness H&P Date: 11/13/23 This is a pleasant 28-year-old male who presented to the emergency department with intentional overdose on Tylenol with suicidal ideation. Patient was on the medical unit and monitored and maintained on Mucomyst per poison control. Poison control following and has cleared the patient as Tylenol levels are within normal limits recommending monitoring of LFTs. Patient with mild elevation although is trending down and will continue to monitor. Patient evaluated by psychiatry recommending inpatient psychiatric for further evaluation and care. Patient is agreeable and was medically stable and transferred to [facility] for further psychiatric evaluation. On exam patient is afebrile with no reports of chest pain or shortness of breath. Encouraged group therapy sessions and compliance with medications along with discussing with psychiatry about overall treatment plan. Patient also instructed to follow-up with his primary care provider on discharge from the hospital. REVIEW OF SYSTEMS: CONSTITUTIONAL: No fever, no malaise, no fatigue. HEENT: No recent visual problems or hearing problems. Denied any sore throat. CARDIOVASCULAR: No chest pain, orthopnea, PND, no palpitations, no syncope. PULMONARY: No shortness of breath, no cough, no hemoptysis. GASTROINTESTINAL: No diarrhea, no nausea, no vomiting, no abdominal pain. NEUROLOGICAL: No headaches, no weakness, no numbness. HEMATOLOGICAL: Denies any bleeding or petechiae. GENITOURINARY: Denies any burning micturition, frequency, or urgency. MUSCULOSKELETAL/RHEUMATOLOGICAL: Denies any joint pain, swelling, or any muscle pain. ENDOCRINE: Denies any polyuria or polydipsia. The rest of the 14-point review of systems is negative. PHYSICAL EXAMINATION: GENERAL: The patient is alert and oriented x3, not in any acute distress. Well developed, well nourished. HEENT: Pupils are round and equally reacting to light. EOMI. No scleral icterus. No conjunctival pallor. Normocephalic, atraumatic. No pharyngeal erythema. No thyromegaly. CARDIOVASCULAR: S1 and S2 present. No murmurs, rubs, or gallops. PULMONARY: Chest is clear to auscultation, no wheezing or crackles. ABDOMEN: Soft, nontender, nondistended, normoactive bowel sounds. No palpable organomegaly. MUSCULOSKELETAL: No joint swelling or deformity. EXTREMITIES: No cyanosis, clubbing, or pedal edema. NEUROLOGICAL: Gross neurological examination did not reveal any focal deficits. SKIN: No rashes. Assessment: Suicidal ideation with intentional Tylenol overdose History of GERD Severe depression Plan: Patient will need close outpatient follow-up with his primary care provider on discharge. Recommend follow-up with [facility] outpatient Continue to monitor LFTs and follow-up with labs in the next few days Encouraged group therapy sessions Encouraged oral intake Thank you kindly for this consultation The impression and plan of care has been dictated by Monalisa Escamilla, Nurse Practitioner as directed. Dr. Alfonso MD I have performed a history and examination and MDM of this patient, discussed the same with the dictator, and agree with the dictator's assessment and plan as written ,documented as a scribe. Based on total visit time, I have performed more than 50% of the visit. Past Medical History Past Medical History: GERD/Reflux Additional Past Medical History / Comment(s): GALLBLADDER DISORDER History of Any Multi-Drug Resistant Organisms: None Reported Past Surgical History: No Surgical Hx Reported Past Anesthesia/Blood Transfusion Reactions: No Reported Reaction Smoking Status: Never smoker - Past Family History Mother Family Medical History: No Reported History Medications and Allergies Home Medications Medication Instructions Recorded Confirmed Type No Known Home Medications 11/10/23 11/13/23 History Allergies Allergy/AdvReac Type Severity Reaction Status Date / Time No Known Allergies Allergy Verified 11/13/23 00:01 Physical Exam Vitals: Vital Signs Temp Pulse Resp BP Pulse Ox 11/13/23 06:22 98.7 F 94 16 101/55 11/12/23 19:00 97.9 F 105 H 16 145/70 97 Intake and Output 11/12/23 11/13/23 11/13/23 22:59 06:59 14:59 Other: Weight 87.5 kg Cranial Nerve Examination - Cranial Nerves Cranial Nerve I- Olfactory: Intact Cranial Nerve II- Optic: Intact Cranial Nerve III- Oculomotor: Intact Cranial Nerve IV- Trochlear: Intact Cranial Nerve V- Trigeminal: Intact Cranial Nerve - Abducens: Intact Cranial Nerve VII- Facial: Intact Cranial Nerve VIII- Auditory: Intact Cranial Nerve IX- Glossopharyngeal: Intact Cranial Nerve X- Vagus: Intact Cranial Nerve XI- Accessory: Intact Cranial Nerve XII- Hypoglossal: Intact Results CBC & Chem 7: 11/13/23 11:10 11/13/23 11:10 Assessment and Plan Time with Patient: Less than 30
[2023-11-14] MEDS: SERTRALINE 50 MG TAB PO SCH (09:05)
--- NOTE | 2023-11-14 10:43 | P.PN ---
Subjective Progress Note Date: 11/14/23 Principal diagnosis: IMPRESSIONS: Suicide attempt by overdose of medications Major depressive disorder, without psychotic features rule out opiate use disorder Patient Name: Peterson Gutierrez Date of : [birth year] Patient Status: Inpatient Attending Provider: Jarrett Suero Date: 11/14/23 subjective data: The patient was seen chart was reviewed and case discussed with nursing staff Patient reports that he was hospitalized once in the past for suicidal ideations He stated that this time and it seemed to give into his thoughts and took an overdose Patient states that he does not have any major stressors he says that his life sucks He states that he lives alone and feels isolated 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 Patient appears to have fair hygiene and grooming wearing street clothes Behavior: Patient was seen in the patient lounge Speech: Patient's speech is fluent and nonpressured. Mood/Affect: Patient reports their mood is "ok", affect is congruent and constricted Suicidality/Homicidality: Patient denies having any suicidal or homicidal ideation intent or plan. Perceptions: Patient denies any visual hallucinations and denies any auditory hallucinations Though content/process: There is no evidence of any delusional thought content and thought process is linear and goal-directed. patient remains withdrawn and not very forthcoming Memory and concentration: AOX3, grossly intact for the purposes of this session. Judgment and insight: Poor PLAN: -Patient is admitted under [voluntary] status to MHU for stabilization of psychiatric symptoms and safety. Patient has signed [adult voluntary form and] [medication consent] and is placed in patient's chart. -Medications : increase Zoloft to 50 mg daily as planned Melatonin 5mg qhs prn for sleep -Ativan [and Haldol] PRN for agitation/aggression -Patient was informed of the risks, benefits and side effects of the medication [and patient verbally consented to taking the medications. ] -Internal Medicine consult to perform medical evaluation and physical. -NRT - non smoker -SW on board for discharge planning. Encourage patient to participate in groups to work on coping skills. therapy will be focused on providing supportive care improving his coping abilities with a multimodal treatment Mario Trice García Objective - Vital Signs Vital signs: Vital Signs Temp 97.8 F 11/14/23 06:22 Pulse 74 11/14/23 06:22 Resp 14 11/14/23 06:22 BP 114/55 11/14/23 06:22 Pulse Ox 97 11/12/23 19:00 FiO2 - Labs CBC & Chem 7: 11/13/23 11:10 11/13/23 11:10 Labs: Abnormal Lab Results - Last 24 Hours (Table) 11/13/23 Range/Units 11:10 Carbon Dioxide 31 H (22-30) mmol/L AST 148 H (17-59) U/L ALT 312 H (4-49) U/L
--- NOTE | 2023-11-15 10:25 | P.PN ---
Subjective Progress Note Date: 11/15/23 Principal diagnosis: IMPRESSIONS: Suicide attempt by overdose of medications Major depressive disorder, without psychotic features rule out opiate use disorder Patient Name: Peterson Gutierrez Date of : [birth year] Patient Status: Inpatient Attending Provider: Jarrett Suero Date: 11/15/23 subjective data: The patient was seen chart was reviewed and case discussed with nursing staff the patient was seen in the day room where he was chatting with other patients Patient was asked about his minimizing his symptoms yesterday where he had reported that he had no stressors causing him to have problems However I have discussed with him the issues that I saw the chart under the primary psychiatrist's's notes Patient however states that he did not feel comfortable trying to talk about all his problems while I will be only here for a day or so and that he would not restart all over again next with another physician As far as depression he states that he feels about the same He admits feeling hopeless and does not see how things will get better However denies any suicidal ideations or plans Self-esteem and confidence remains low ENTAL STATUS EXAM: General Appearance: Patient appears to be thin, wearing glasses, stated age is alert, pleasant, and cooperative. Patient appears to have fair hygiene and grooming wearing street clothes Behavior: Patient was seen in the patient lounge Speech: Patient's speech is fluent and nonpressured. Mood/Affect: Patient reports their mood is "ok", affect is congruent and constricted Suicidality/Homicidality: Patient denies having any suicidal or homicidal ideation intent or plan. Perceptions: Patient denies any visual hallucinations and denies any auditory hallucinations Though content/process: There is no evidence of any delusional thought content and thought process is linear and goal-directed. patient remains withdrawn and not very forthcoming Memory and concentration: AOX3, grossly intact for the purposes of this session. Judgment and insight: Poor PLAN: continue positive reinforcement and assertiveness Patient at this time does not see any hope for the future and admits to feeling helpless and hopeless and needs to do with his attention tumors more positive activities interests and hobbies in addition to counseling and supportive care -Patient is admitted under [voluntary] status to MHU for stabilization of psychiatric symptoms and safety. Patient has signed [adult voluntary form and] [medication consent] and is placed in patient's chart. -Medications : increase Zoloft to 50 mg daily as planned Melatonin 5mg qhs prn for sleep -Ativan [and Haldol] PRN for agitation/aggression -Patient was informed of the risks, benefits and side effects of the medication [and patient verbally consented to taking the medications. ] -Internal Medicine consult to perform medical evaluation and physical. -NRT - non smoker -SW on board for discharge planning. Encourage patient to participate in groups to work on coping skills. therapy will be focused on providing supportive care improving his coping abilities with a multimodal treatment Mario Carnes M.D. Objective - Vital Signs Vital signs: Vital Signs Temp 98.6 F 11/15/23 06:40 Pulse 86 11/15/23 06:40 Resp 14 11/15/23 06:40 BP 129/64 11/15/23 06:40 Pulse Ox 97 11/12/23 19:00 FiO2 Intake & Output 11/14/23 11/15/23 11/15/23 18:59 06:59 18:59 Weight 82.055 kg - Labs CBC & Chem 7: 11/13/23 11:10 11/13/23 11:10
--- NOTE | 2023-11-16 10:12 | P.PN ---
Progress Note - Text Progress Note Date: 11/16/23 Clinical Problems: Suicide attempt by overdose of Tylenol, major depressive disorder without psychotic features Interim history: Mr. Gutierrez was transferred to the psychiatric unit on 11/12/2021 for from medical unit where he was admitted following overdose 10 tablets of 5 mg oxycodone as well as 14 tablets of Tylenol 500 mg. He was stabilized in cooperation with poison control then transferred to psychiatric unit Mental status exam: He said that he was experiencing overwhelming stress and did not handle the stress properly. The overdose was his way of asking for help. He expressed some insight and that he understands that overdosing on medications was not a healthy or positive means for asking for help. He talked about feeling lonely since his brother moved out of the apartment and is living with her fianc. He would like to follow-up with his physician and find a therapist or counselor with whom he can discuss his stressors and find better ways of coping. He feels less depressed and anxious. He attributes the change to current medications sertraline and melatonin. He denied current problems with sleep. He denied having thoughts of or suicide. No psychotic symptoms. Assessment: No side effects with current medications. Apparent insight and to see unhealthy coping strategies that led to this hospitalization. No current suicidal ideation, thoughts or intent Plan: Continue Zoloft 50 mg daily and titrate according to clinical response. Melatonin 5 mg at bedtime. Participate in therapeutic activities. Collaborate with social work with discharge planning including referral for individual therapy. Plan for discharge on 11/17/2023.
[2023-11-16 14:57] LABS: ALT 129 U/L (4-49); AST 28 U/L (17-59); African American GFR (CKD) >90 (>60 ml/min/1.73 sqM); Albumin 4.3 g/dL (3.5-5.0); Alkaline Phosphatase 90 U/L (38-126); Anion Gap 8 mmol/L; Blood Urea Nitrogen 13 mg/dL (9-20); Calcium 9.4 mg/dL (8.4-10.2); Carbon Dioxide 26 mmol/L (22-30); Chloride 105 mmol/L (98-107); Glucose 131 mg/dL (74-99); Non-African American GFR(CKD) >90 (>60 ml/min/1.73 sqM); Potassium 4.2 mmol/L (3.5-5.1); Sodium 139 mmol/L (137-145); Total Bilirubin 0.5 mg/dL (0.2-1.3); Total Protein 7.1 g/dL (6.3-8.2)
[2023-11-17 06:07] VITALS: BP 121/69; PULSE 67; RESP 17; TEMP 97.8
--- NOTE | 2023-11-17 12:24 | P.DS ---
Providers Date of admission: 11/12/23 21:36 Attending physician: Jarrett Suero MD Consults: 11/12/23 17:22 Consult Physician Routine Consulting Provider: [facility] Hospitalists Consult Reason/Comments: H&P Do you want consulting provider notified?: Yes Primary care physician: Wander Ott Kut - Discharge Diagnosis(es) (1) Acetaminophen overdose Current Visit: Yes Status: Resolved Priority: High (2) Intentional overdose Current Visit: Yes Status: Resolved Priority: High (3) Major depressive disorder, recurrent severe without psychotic features Current Visit: Yes Status: Acute Priority: High (4) Suicidal ideation Current Visit: Yes Status: Resolved (5) Transaminitis Current Visit: Yes Status: Resolved Priority: High Hospital Course: HISTORY: Mr. Gutierrez was transferred to the psychiatric unit on 11/12/2021 for from medical unit where he was admitted following overdose 10 tablets of 5 mg oxycodone as well as 14 tablets of Tylenol 500 mg. He was stabilized in cooperation with poison control then transferred to psychiatric unit. He said that he was experiencing overwhelming stress and did not handle the stress properly. The overdose was his way of asking for help. He expressed some insight and that he understands that overdosing on medications was not a healthy or positive means for asking for help. He talked about feeling lonely since his brother moved out of the apartment and is living with her fianc. He would like to follow-up with his physician and find a therapist or counselor with whom he can discuss his stressors and find better ways of coping. HOSPITAL COURSE: We admitted him to the psychiatric unit under care of Dr. Messer. He received comprehensive biopsychosocial assessment. The jury consultant is completed initial physical exam medical history and newly diagnosed suicide attempt by Tylenol overdose. She Rumack recommended to follow-up with primary care for discharge and monitor his LFTs over the next few days. His LFTs continue to trend down and on the day prior to discharge his AST was 28 and ALT was 129. He participated in therapy groups and activities. He pose no management problem and had no episodes of behavioral dyscontrol. We prescribed sertraline 50 mg daily for treatment of depression and melatonin 5 mg at bedtime for sleep. He reported a improvement in his mood with participation in the therapeutic community. MENTAL STATUS ON DISCHARGE: At time of discharge he presented as a casually groomed and young male who was pleasant and cooperative. He made eye contact and attentive to the interview. He had a bright facial expression. He showed no motor abnormality. His speech was spontaneous with normal rhythm but decreased volume. Affect was blunted but stable and appropriate. No suicidal ideation, wishes homicidal ideation. No depressive cognitions. No ideas of reference,. Ideation, measure ideation or delusions. His thinking was concrete but associations were coherent, logical and goal directed. No hallucinations. DISPOSITION: He will return home and plans to return to work on 11/17. [facility] Discharge medications listed below. Patient Condition at Discharge: Stable Plan - Discharge Summary New Discharge Prescriptions: New Melatonin 5 mg PO HS #30 tab Sertraline [Zoloft] 50 mg PO DAILY #30 tab Discharge Medication List Melatonin 5 mg PO HS #30 tab 11/17/23 [Rx] Sertraline [Zoloft] 50 mg PO DAILY #30 tab 11/17/23 [Rx] Follow up Appointment(s)/Referral(s): [facility] - 11/26/23 12:30 pm (11/25 @ 12:30 paperwork 11/25 @ 13:00 with Abdias Henriquez for counseling Please call agency if unable to make appt) Wander Meyers [Primary Care Provider] - 1 Week (Follow up closely to monitor labs/liver enzymes per medical consult) Ambulatory/Diagnostic Orders: Comprehensive Metabolic Panel [LAB.AMB] Time Frame: 1 Week, Location: None Selected Patient Instructions/Handouts: Depression (DC), Suicide Prevention (DC) Activity/Diet/Wound Care/Special Instructions: Avoid the use of street drugs and alcohol. Take all medications as prescribed. When you are in need of refills on your medications, please contact your medical provider and/or outpatient psychiatrist/provider to have this done. Please go to your scheduled outpatient appointment for aftercare treatment. If symptoms return or become worse, call the crisis line at and/or go to the nearest emergency room for evaluation. National Suicide Hotline 981 Discharge Disposition: HOME SELF-CARE
== END 2023-11-17 16:06 | disposition home or self-care (01) | DRG 885 ==
LOC: 3MHU 18:47 → UNDOADMIN 21:36 → UNDODISIN 11-17 16:06
PROVIDERS: ADMIT Psychiatry & Neurology Psychiatry; ATTEND Psychiatry & Neurology Psychiatry
DX: F33.2 Major depressive disorder, recurrent severe without psychotic features (principal); T39.1X2D Poisoning by 4-Aminophenol derivatives, intentional self-harm, subsequent encounter; R74.01 Elevation of levels of liver transaminase levels; F41.9 Anxiety disorder, unspecified; K21.9 Gastro-esophageal reflux disease without esophagitis; Z79.899 Other long term (current) drug therapy
CPT/HCPCS: 80053; 83036; 84443; 85025